=== PATIENT | male | born 1955 | race Caucasian/White ===

== ENCOUNTER 2018-04-23 09:06 | Inpatient (IN) | payer BC, OTHER ==
[2018-04-23 10:00] LABS: PLATELET COUNT 253 10^3/uL (150-400)
--- NOTE | 2018-04-23 10:01 | EDPHY ---
H & P Stated Complaint: L knee swelling Time Seen by Provider: 04/23/18 09:22 HPI/ROS: CHIEF COMPLAINT: "My left knee is draining" HISTORY OF PRESENT ILLNESS: 62 year old immunosuppressed male, history of psoriasis on immune suppressant medication, arrives via private vehicle complaining of progressive left knee pain for the past 5 denies with development of blood blisters and drainage since last evening. He contact his PCP and a prescription for ciprofloxacin was called in. He has taken 1 dose of ciprofloxacin. He saw his PCP in the office this morning and was told to go to the ER for further evaluation. The patient complains of foul-smelling wound purulent, sanguinous drainage since last evening. He is able to bear weight albeit with pain. He denies history of trauma. He recently traveled to the [facility]. No international travel. States that he is otherwise feeling well. He denies: Fever, chills, flu-like symptoms, gingival bleeding, GI bleeding, urinary discoloration/hematuria, abdominal pain, nausea, vomiting PRIMARY CARE PROVIDER:Dr. Johann Rios REVIEW OF SYSTEMS: A ten point review of systems was performed and is negative with the exception of the items mentioned in the HPI PAST MEDICAL & SURGICAL HISTORY: Psoriasis on Taltz. Tetanus up-to-date. Immune suppressed secondary to psoriasis medication. History of [place] with stents. No anticoagulant medications. No history of diabetes. No history of chronic skin infections or known history of MRSA. SOCIAL HISTORY: nonsmoker PHYSICAL EXAM (Prior to examination, patient consented to physical exam, hands were washed and my usual and customary physical exam procedures followed) 1) GENERAL: obese, alert and oriented. Appears nontoxic 2) HEAD: Normocephalic, atraumatic 3) HEENT: Pupils equal, round, reactive to light bilaterally. Sclera anicteric. 4) NECK: Full range of motion, no meningeal signs. 5) LUNGS: Clear auscultation bilaterally, no wheezes, no rhonchi, no retractions. 6) HEART: Regular rate and rhythm, no murmur, no heave, no gallop. 7) ABDOMEN: No guarding, no rebound, no focal tenderness, negative McBurney's, negative Ohara's, negative Rovsing's, negative peritoneal sign, 8) MUSCULOSKELETAL: Left lower extremity: Purulent, sanguinous drainage appreciated from the prepatellar region with associated foul smell. Erythema extending to the distal 3rd of the thigh. Clots appreciated. Limited range of motion secondary to pain. No crepitus. 9) BACK: No CVA tenderness, no midline vertebral tenderness, no fluctuance, no step-off, no obvious trauma, no visual or palpable abnormality. 10) SKIN: No rash, no petechiae. 11) Psychiatric: Patient is oriented X 3, there is no agitation. DIFFERENTIAL DIAGNOSIS: In no particular include but limited to prepatellar septic bursitis, cellulitis, necrotizing fasciitis, septic arthritis - Personal History Current Tetanus/Diphtheria Vaccine: Yes Current Tetanus Diphtheria and Acellular Pertussis (TDAP): Yes - Medical/Surgical History Hx Asthma: Yes Hx Chronic Respiratory Disease: No Hx Diabetes: No Hx Cardiac Disease: Yes Hx Renal Disease: No Hx Cirrhosis: No Hx Alcoholism: No Hx HIV/AIDS: No Hx Splenectomy or Spleen Trauma: No Other PMH: HTN, psoriasis, asthma, [place] 1998, 3 stents, - Social History Smoking Status: Former smoker Constitutional: Initial Vital Signs Temperature (C) 36.7 C 04/23/18 09:14 Heart Rate 98 04/23/18 09:14 Respiratory Rate 16 04/23/18 09:14 Blood Pressure 151/73 H 04/23/18 09:14 O2 Sat (%) 92 04/23/18 09:14 O2 Delivery Mode Room Air Allergies/Adverse Reactions: No Known Allergies Allergy (Unverified 04/23/18 09:12) Home Medications: Medication Instructions Recorded Ascorbic Acid [Vitamin C 500 mg 500 mg PO DAILY 04/23/18 (*)] Atorvastatin Calcium [Lipitor 40 80 mg PO DAILY18 04/23/18 mg (*)] Cetirizine [ZyrTEC 10 mg (*)] 10 mg PO DAILY 04/23/18 Ciprofloxacin [Cipro] 500 mg PO BID 04/23/18 Diclofenac Sodium [Voltaren-XR] 100 mg PO DAILY 04/23/18 Glucosamine/Chondroitin 1 each PO BID 04/23/18 [Glucosamine/Chondroitin (*)] Herbals/Supplements -Info Only 1 ea PO DAILY 04/23/18 Ixekizumab [Taltz Autoinjector] 80 mg SQ Q30D 04/23/18 Metoprolol Succinate Xr [Toprol Xl 50 mg PO DAILY 04/23/18 50 mg (*)] Multivitamins [Multivitamin (*)] 1 each PO DAILY 04/23/18 Medical Decision Making - Diagnostics Imaging Results: Imaging Impressions Knee X-Ray 04/23/18 09:40 Impression: 1. Soft tissue wound or infection in the subcutaneous fat anterior to the patella, patellar tendon, and proximal tibia with radiopaque debris and air. 2. Tricompartment degenerative change left knee more severe in the medial compartment. ED Course/Re-evaluation: 9:30 p.m.: Patient was also seen and examined by Dr. Wander Byrne in the ER after I evaluated patient. Patient has purulent sanguinous drainage from the prepatellar space and intra-articular extension is not ruled out. Plan will be laboratory studies, broad-spectrum antibiotics, consultation with General surgery. Necrotizing fasciitis, osteomyelitis not ruled out at this time 10:38 a.m.: Consultation with Dr. Mckeon general surgery who will consult.. 10:43 a.m.: Consultation with hospitalistLavonne, admit to Dr. Shaan Lujan - Data Points Laboratory Results: Laboratory Results 04/23/18 09:50 04/23/18 09:50 04/23/18 04/23/18 04/23/18 09:55 09:50 09:50 WBC RBC Hgb Hct MCV MCH MCHC RDW Plt Count MPV Neut % (Auto) Lymph % (Auto) [place] % (Auto) Eos % (Auto) Baso % (Auto) Nucleat RBC Rel Count Absolute Neuts (auto) Absolute Lymphs (auto) Absolute Monos (auto) Absolute Eos (auto) Absolute Basos (auto) Absolute Nucleated RBC Immature Gran % Seg Neutrophils % Band Neutrophils % Lymphocytes % Monocytes % Eosinophils % Basophils % Metamyelocytes % Myelocytes % Promyelocytes % Blast Cells % Immature Gran # Absolute Seg Neuts Absolute Band Neuts Absolute Lymphocytes Absolute Monocytes Absolute Eosinophils Absolute Basophils Absolute Metamyelocyte Absolute Myelocytes Absolute Promyelocytes Absolute Plasma Cells Absolute Blast Cells Plasma Cells % Toxic Granulation Platelet Estimate Microcytic Cells Echinocytes ESR PT INR APTT VBG Lactic Acid 3.7 mmol/L H mmol/L (0.7-2.1) Sodium 139 mEq/L mEq/L (135-145) Potassium 4.5 mEq/L mEq/L (3.3-5.0) Chloride 98 mEq/L mEq/L (97-110) Carbon Dioxide 21 mEq/l L mEq/l (22-31) Anion Gap 20 mEq/L H mEq/L (8-16) BUN 86 mg/dL H mg/dL (7-23) Creatinine 4.4 mg/dL H mg/dL (0.7-1.3) Estimated GFR 14 Glucose 119 mg/dL H mg/dL (70-100) POC Lactic Acid Krishan 3.7 mmol/L H mmol/L (0.7-2.1) Calcium 8.2 mg/dL L mg/dL (8.5-10.4) C-Reactive Protein 510.9 mg/L H mg/L (<10.0) 04/23/18 04/23/18 09:50 09:50 WBC 14.15 10^3/uL H 10^3/uL (3.80-9.50) RBC 5.17 10^6/uL 10^6/uL (4.40-6.38) Hgb 14.0 g/dL g/dL (13.7-17.5) Hct 42.9 % % (40.0-51.0) MCV 83.0 fL fL (81.5-99.8) MCH 27.1 pg L pg (27.9-34.1) MCHC 32.6 g/dL g/dL (32.4-36.7) RDW 15.9 % H % (11.5-15.2) Plt Count 253 10^3/uL 10^3/uL (150-400) MPV 11.7 fL fL (8.7-11.7) Neut % (Auto) Not Reported Lymph % (Auto) Not Reported [place] % (Auto) Not Reported Eos % (Auto) Not Reported Baso % (Auto) Not Reported Nucleat RBC Rel Count Not Reported Absolute Neuts (auto) Not Reported Absolute Lymphs (auto) Not Reported Absolute Monos (auto) Not Reported Absolute Eos (auto) Not Reported Absolute Basos (auto) Not Reported Absolute Nucleated RBC Not Reported Immature Gran % Not Reported Seg Neutrophils % 42.9 % % Band Neutrophils % 32.7 % % Lymphocytes % 12.2 % % Monocytes % 7.1 % % Eosinophils % 3.1 % % Basophils % 0 % % Metamyelocytes % 2.0 % % Myelocytes % 0 % % Promyelocytes % 0 % % Blast Cells % 0 % % Immature Gran # Not Reported Absolute Seg Neuts 6.07 10^/uL 10^/uL (1.70-6.50) Absolute Band Neuts 4.63 10^3/uL H 10^3/uL (0.00-0.70) Absolute Lymphocytes 1.73 10^3/uL 10^3/uL (1.00-3.00) Absolute Monocytes 1.00 10^3/uL H 10^3/uL (0.30-0.80) Absolute Eosinophils 0.44 10^3/uL H 10^3/uL (0.03-0.40) Absolute Basophils 0.00 10^3/uL L 10^3/uL (0.02-0.10) Absolute Metamyelocyte 0.28 10^3/mL H 10^3/mL (0.00-0.00) Absolute Myelocytes 0.00 10^3/mL 10^3/mL (0.00-0.00) Absolute Promyelocytes 0.00 10^3/uL 10^3/uL (0.00-0.00) Absolute Plasma Cells 0.00 10^3/uL 10^3/uL (0.00-0.00) Absolute Blast Cells 0.00 10^3/uL 10^3/uL (0.00-0.00) Plasma Cells % 0 % % Toxic Granulation PRESENT H Platelet Estimate ADEQUATE (ADEQ) Microcytic Cells 1+ H Echinocytes 1+ H ESR > 130 MM/HR H MM/HR (0-20) PT 16.0 SEC H SEC (12.0-15.0) INR 1.26 H (0.83-1.16) APTT 28.1 SEC SEC (23.0-38.0) VBG Lactic Acid Sodium Potassium Chloride Carbon Dioxide Anion Gap BUN Creatinine Estimated GFR Glucose POC Lactic Acid Krishan Calcium C-Reactive Protein Microbiology Results: MICROBIOLOGY 04/23/18 09:35 Knee - Swab Gram Stain - Final Medications Given: Discontinued Medications Bacitracin (Bacitracin Syringe) Confirm Administered Dose 150,000 units IRR .STK -MED ONE Stop: 04/23/18 12:18 Last Admin: 04/23/18 13:29 Dose: 150,000 units Bupivacaine HCl (Sensorcaine 0.5% Vial) Confirm Administered Dose 30 ml .ROUTE .STK-MED ONE Stop: 04/23/18 11:54 Last Admin: 04/23/18 13:29 Dose: 30 ml Cefazolin Sodium/Dextrose (Ancef 2 Gm) 100 mls @ 200 mls/hr IV EDNOW ONE PRN Reason: Protocol Stop: 04/23/18 10:37 Last Admin: 04/23/18 11:05 Dose: 100 mls Sodium Chloride (Ns) 2,000 mls @ 0 mls/hr IV ONCE ONE PRN Reason: Wide Open Stop: 04/23/18 10:10 Last Admin: 04/23/18 10:18 Dose: 2,000 mls Vancomycin HCl 2 gm/ Dextrose 500 mls @ 250 mls/hr IV ONCE ONE Stop: 04/23/18 14:29 Last Admin: 04/23/18 13:26 Dose: 500 mls Midazolam HCl (Versed) 2 mg IVP ONCALL ONE Stop: 04/23/18 12:27 Last Admin: 04/23/18 12:36 Dose: 2 mg Point of Care Test Results: Blood Gas/Lactic Acid-Venous 04/23/18 09:55 POC Lactic Acid Krishan 3.7 mmol/L H mmol/L (0.7-2.1) Departure - Departure Disposition: [facility] Inpatient Acute Clinical Impression: Left leg cellulitis Acute renal failure (ARF) Qualifiers: Acute renal failure type: unspecified Qualified Code(s): N17.9 - Acute kidney failure, unspecified Condition: Good
[2018-04-23] MEDS ORDERED: ceFAZolin 2 GM/DEXTROSE 100 ML IV ONE (10:08)
[2018-04-23 10:09] LABS: INR 1.26 (0.83-1.16)
[2018-04-23] MEDS ORDERED: NS 2,000 ML IV ONE (10:09)
--- NOTE | 2018-04-23 11:36 | PDGENHP ---
History and Physical - Chief Complaint L leg pain, drainage - History of Present Illness 62 yo morbidly obese male, has had swelling and some erythema of the left lower leg for a while, has gotten acutely worse over the past few days. Was at his PCP office [place] today, had significant drainage from the area and was directed here. Co left lower leg pain, has had chills pain is sharp, non radiating and worse with movement History Information - Allergies/Home Medication List Allergies/Adverse Reactions: No Known Allergies Allergy (Unverified 04/23/18 09:12) Home Medications: Ascorbic Acid [Vitamin C 500 mg (*)] 500 mg PO DAILY 04/23/18 [Last Taken ] Atorvastatin Calcium [Lipitor 40 mg (*)] 80 mg PO DAILY18 04/23/18 [Last Taken 04/22/18] Cetirizine [ZyrTEC 10 mg (*)] 10 mg PO DAILY 04/23/18 [Last Taken 04/23/18] Ciprofloxacin [Cipro] 500 mg PO BID 04/23/18 [Last Taken 04/23/18] Diclofenac Sodium [Voltaren-XR] 100 mg PO DAILY 04/23/18 [Last Taken 04/23/18] Glucosamine/Chondroitin [Glucosamine/Chondroitin (*)] 1 each PO BID 04/23/18 [ Last Taken 04/23/18] Herbals/Supplements -Info Only 1 ea PO DAILY 04/23/18 [Last Taken Unknown] Ixekizumab [Taltz Autoinjector] 80 mg SQ Q30D 04/23/18 [Last Taken 10 Days Ago ~ 04/13/18] Metoprolol Succinate Xr [Toprol Xl 50 mg (*)] 50 mg PO DAILY 04/23/18 [Last Taken 04/23/18] Multivitamins [Multivitamin (*)] 1 each PO DAILY 04/23/18 [Last Taken 04/23/18] I have personally reviewed and updated: medical history, social history, surgical history - Surgical History Additional surgical history: no Hx of nec fasc - Social History Smoking Status: Former smoker Review of Systems Review of Systems: ROS: 10pt was reviewed & negative except for what was stated in HPI & below Physical Exam Physical Exam: Temp Pulse Resp BP Pulse Ox 36.8 C 87 18 106/77 92 04/23/18 10:17 04/23/18 10:17 04/23/18 10:17 04/23/18 10:17 04/23/18 10:17 Constitutional: no apparent distress, appears nourished, not in pain Eyes: PERRL, anicteric sclera, EOMI Ears, Nose, Mouth, Throat: moist mucous membranes, hearing normal, ears appear normal, no oral mucosal ulcers Cardiovascular: regular rate and rhythym, no murmur, rub, or gallop, No edema Respiratory: no respiratory distress, no rales or rhonchi, clear to auscultation Gastrointestinal: normoactive bowel sounds, soft, non-tender abdomen, no palpable masses Genitourinary: no bladder fullness, no bladder tenderness Skin: warm, normal color, no rashes or abrasions, no fluctuance, no induration, No mottled Musculoskeletal: other (L lower leg cellulitis, open wound with necrotic tissue under, distal pulses intact ) Psychiatric: interacting appropriately, not anxious, not encephalopathic, thought process linear Lymph, Heme, Immunologic: no cervical LAD, no supraclavicular LAD Lab Data & Imaging Review 04/23/18 09:50 04/23/18 09:50 WBC 14.15 10^3/uL (3.80-9.50) H 04/23/18 09:50 RBC 5.17 10^6/uL (4.40-6.38) 04/23/18 09:50 Hgb 14.0 g/dL (13.7-17.5) 04/23/18 09:50 Hct 42.9 % (40.0-51.0) 04/23/18 09:50 MCV 83.0 fL (81.5-99.8) 04/23/18 09:50 MCH 27.1 pg (27.9-34.1) L 04/23/18 09:50 MCHC 32.6 g/dL (32.4-36.7) 04/23/18 09:50 RDW 15.9 % (11.5-15.2) H 04/23/18 09:50 Plt Count 253 10^3/uL (150-400) 04/23/18 09:50 MPV 11.7 fL (8.7-11.7) 04/23/18 09:50 Neut % (Auto) Not Reported 04/23/18 09:50 Lymph % (Auto) Not Reported 04/23/18 09:50 [place] % (Auto) Not Reported 04/23/18 09:50 Eos % (Auto) Not Reported 04/23/18 09:50 Baso % (Auto) Not Reported 04/23/18 09:50 Nucleat RBC Rel Count Not Reported 04/23/18 09:50 Absolute Neuts (auto) Not Reported 04/23/18 09:50 Absolute Lymphs (auto) Not Reported 04/23/18 09:50 Absolute Monos (auto) Not Reported 04/23/18 09:50 Absolute Eos (auto) Not Reported 04/23/18 09:50 Absolute Basos (auto) Not Reported 04/23/18 09:50 Absolute Nucleated RBC Not Reported 04/23/18 09:50 Immature Gran % Not Reported 04/23/18 09:50 Seg Neutrophils % 42.9 % 04/23/18 09:50 Band Neutrophils % 32.7 % 04/23/18 09:50 Lymphocytes % 12.2 % 04/23/18 09:50 Monocytes % 7.1 % 04/23/18 09:50 Eosinophils % 3.1 % 04/23/18 09:50 Basophils % 0 % 04/23/18 09:50 Metamyelocytes % 2.0 % 04/23/18 09:50 Myelocytes % 0 % 04/23/18 09:50 Promyelocytes % 0 % 04/23/18 09:50 Blast Cells % 0 % 04/23/18 09:50 Immature Gran # Not Reported 04/23/18 09:50 Absolute Seg Neuts 6.07 10^/uL (1.70-6.50) 04/23/18 09:50 Absolute Band Neuts 4.63 10^3/uL (0.00-0.70) H 04/23/18 09:50 Absolute Lymphocytes 1.73 10^3/uL (1.00-3.00) 04/23/18 09:50 Absolute Monocytes 1.00 10^3/uL (0.30-0.80) H 04/23/18 09:50 Absolute Eosinophils 0.44 10^3/uL (0.03-0.40) H 04/23/18 09:50 Absolute Basophils 0.00 10^3/uL (0.02-0.10) L 04/23/18 09:50 Absolute Metamyelocyte 0.28 10^3/mL (0.00-0.00) H 04/23/18 09:50 Absolute Myelocytes 0.00 10^3/mL (0.00-0.00) 04/23/18 09:50 Absolute Promyelocytes 0.00 10^3/uL (0.00-0.00) 04/23/18 09:50 Absolute Plasma Cells 0.00 10^3/uL (0.00-0.00) 04/23/18 09:50 Absolute Blast Cells 0.00 10^3/uL (0.00-0.00) 04/23/18 09:50 Plasma Cells % 0 % 04/23/18 09:50 Toxic Granulation PRESENT H 04/23/18 09:50 Platelet Estimate ADEQUATE (ADEQ) 04/23/18 09:50 Microcytic Cells 1+ H 04/23/18 09:50 Echinocytes 1+ H 04/23/18 09:50 ESR > 130 MM/HR (0-20) H 04/23/18 09:50 PT 16.0 SEC (12.0-15.0) H 04/23/18 09:50 INR 1.26 (0.83-1.16) H 04/23/18 09:50 APTT 28.1 SEC (23.0-38.0) 04/23/18 09:50 VBG Lactic Acid 3.7 mmol/L (0.7-2.1) H 04/23/18 09:50 Sodium 139 mEq/L (135-145) 04/23/18 09:50 Potassium 4.5 mEq/L (3.3-5.0) 04/23/18 09:50 Chloride 98 mEq/L (97-110) 04/23/18 09:50 Carbon Dioxide 21 mEq/l (22-31) L 04/23/18 09:50 Anion Gap 20 mEq/L (8-16) H 04/23/18 09:50 BUN 86 mg/dL (7-23) H 04/23/18 09:50 Creatinine 4.4 mg/dL (0.7-1.3) H 04/23/18 09:50 Estimated GFR 14 04/23/18 09:50 Glucose 119 mg/dL (70-100) H 04/23/18 09:50 POC Lactic Acid Krishan 3.7 mmol/L (0.7-2.1) H 04/23/18 09:55 Calcium 8.2 mg/dL (8.5-10.4) L 04/23/18 09:50 C-Reactive Protein 510.9 mg/L (<10.0) H 04/23/18 09:50 Assessment & Plan Assessment: Left leg cellulitis (Acute) Plan: 62yo M, LLE cellulitis, high suspiciou for NSTI - IV abx, - to OR for debridement KAYLYNN, discussed that this may be ongoing process. Discussed that he may lose leg regardless of Tx - RBA discussed
[2018-04-23] MEDS ORDERED: LR 1,000 ML IV ONE ×2 (11:46→12:09)
[2018-04-23] MEDS ORDERED: BUPIVACAINE 0.5% 30 ML SDV ONE (11:53)
[2018-04-23] MEDS ORDERED: PROPOFOL 200 MG/20 ML VIAL ONE ×2 (11:59)
[2018-04-23] MEDS ORDERED: fentaNYL 100 MCG/2 ML INJ ONE ×2 (11:59→13:00)
[2018-04-23] MEDS ORDERED: HYDROmorphONE/DILAUDID 1 MG/ML INJ IVP PRN ×2 (12:02→13:55)
[2018-04-23] MEDS ORDERED: LIDOCAINE 2% 5 ML SDV ONE (12:02)
[2018-04-23] MEDS ORDERED: ONDANSETRON 4 MG/2 ML VIAL IVP PRN ×2 (12:02→13:55)
[2018-04-23] MEDS ORDERED: ONDANSETRON DISINTEGRATING 4 MG TAB PO PRN (12:02)
[2018-04-23] MEDS ORDERED: ACETAMINOPHEN 325 MG TAB PO PRN (12:02)
[2018-04-23] MEDS ORDERED: HYDROmorphONE/DILAUDID 2 MG TAB PO PRN (12:02)
[2018-04-23] MEDS ORDERED: BACITRACIN 50,000 UNITS/10 ML SYR IRR ONE (12:17)
[2018-04-23] MEDS ORDERED: MIDAZOLAM 2 MG/2 ML VIAL IVP ONE (12:26)
[2018-04-23] MEDS ORDERED: MIDAZOLAM 2 MG/2 ML VIAL ONE (12:26)
[2018-04-23] MEDS ORDERED: VANCOMYCIN 2 GM in D5W 500 ML IV ONE (12:30)
[2018-04-23] MEDS ORDERED: DEXAMETHASONE 4 MG/ML VIAL ONE (12:51)
--- NOTE | 2018-04-23 13:17 | PDANEPAE ---
ANE History of Present Illness morbidly obese with LLE cellulitis ANE Past Medical History - Cardiovascular History Hx Hypertension: Yes Hx Arrhythmias: No Hx Chest Pain: No Hx Coronary Artery / Peripheral Vascular Disease: Yes Hx CHF / Valvular Disease: No Hx Palpitations: No - Pulmonary History Hx COPD: No Hx Asthma/Reactive Airway Disease: No Hx Recent Upper Respiratory Infection: No Hx Oxygen in Use at Home: No Hx Sleep Apnea: No - Endocrine History Hx Diabetes: No Hypothyroid: No Hyperthyroid: No Obesity: yes, severe ANE Review of Systems Review of systems is: negative Review of Systems: - Exercise capacity Exercise capacity: <4 METS ANE Patient History - Allergies Allergies/Adverse Reactions: No Known Allergies Allergy (Unverified 04/23/18 09:12) - Home Medications Home medications: home medication list seen and reviewed Home Medications: Ascorbic Acid [Vitamin C 500 mg (*)] 500 mg PO DAILY 04/23/18 [Last Taken ] Atorvastatin Calcium [Lipitor 40 mg (*)] 80 mg PO DAILY18 04/23/18 [Last Taken 04/22/18] Cetirizine [ZyrTEC 10 mg (*)] 10 mg PO DAILY 04/23/18 [Last Taken 04/23/18] Ciprofloxacin [Cipro] 500 mg PO BID 04/23/18 [Last Taken 04/23/18] Diclofenac Sodium [Voltaren-XR] 100 mg PO DAILY 04/23/18 [Last Taken 04/23/18] Glucosamine/Chondroitin [Glucosamine/Chondroitin (*)] 1 each PO BID 04/23/18 [ Last Taken 04/23/18] Herbals/Supplements -Info Only 1 ea PO DAILY 04/23/18 [Last Taken Unknown] Ixekizumab [Taltz Autoinjector] 80 mg SQ Q30D 04/23/18 [Last Taken 10 Days Ago ~ 04/13/18] Metoprolol Succinate Xr [Toprol Xl 50 mg (*)] 50 mg PO DAILY 04/23/18 [Last Taken 04/23/18] Multivitamins [Multivitamin (*)] 1 each PO DAILY 04/23/18 [Last Taken 04/23/18] - NPO status NPO Since - Liquids (Date): 04/23/18 NPO Since - Liquids (Time): 07:30 NPO Since - Solids (Date): 04/22/18 NPO Since - Solids (Time): 18:30 - Smoking Hx Smoking Status: Former smoker ANE Labs/Vital Signs - Labs Result Diagrams: 04/23/18 09:50 04/23/18 09:50 - Vital Signs Blood Pressure: 115/78 Heart Rate: 73 Respiratory Rate: 18 O2 Sat (%): 91 Height: 177.8 cm Weight: 173.272 kg ANE Physical Exam - Airway Neck exam: FROM, increased neck circumference Mallampati Score: Class 2 Mouth exam: normal dental/mouth exam - Pulmonary Pulmonary: no respiratory distress - Cardiovascular Cardiovascular: regular rate and rhythym - ASA Status ASA Status: IV ANE Anesthesia Plan Anesthesia Plan: GA w LMA Urgent/Emergent Case: Gina langford completed preop but documented later for safe timely pt care
--- NOTE | 2018-04-23 13:28 | POSTANESTH ---
Post Anesthetic Evaluation Cardiovascular Status: Normal, Stable Respiratory Status: Normal, Stable Level of Consciousness/Mental Status: Can Participate in Eval, Alert and Oriented Pain Control: Adequate, Prn Tx Ordered Nausea/Vomiting Control: Adequate, Prn Tx Ordered Complications Possibly Related to Anesthesia: None Noted
[2018-04-23] MEDS ORDERED: fentaNYL 100 MCG/2 ML INJ IVP PRN (13:55)
[2018-04-23] MEDS ORDERED: oxyCODONE IR 5 MG TAB PO PRN (13:55)
[2018-04-23] MEDS ORDERED: PROMETHAZINE HCL 25 MG/ML INJ IVP PRN (13:55)
[2018-04-23] MEDS ORDERED: LABETALOL HCL 5 MG/ML 20 ML MDV IVP PRN (13:55)
[2018-04-23] MEDS ORDERED: ALBUTEROL 3 ML DEYVIAL IH PRN (13:55)
[2018-04-23] MEDS ORDERED: NALOXONE HCL 0.4 MG/ML INJ IVP PRN (13:55)
[2018-04-23] MEDS ORDERED: HYDROCODONE/APAP 5/325 TAB PO PRN (13:55)
[2018-04-23] MEDS ORDERED: ACETAMINOPHEN 500 MG TAB PO PRN (13:55)
--- NOTE | 2018-04-23 13:57 | POSTOPPROG ---
Post Op Note Date of Operation: 04/23/18 Surgeon: Nithin Mckeon Anesthesiologist: Angelito Anesthesia: LMA Pre-op Diagnosis: LLE abscess, poss NSTI Post-op Diagnosis: LLE abscess Procedure: Incision and drainage of LLE abscess 13x9cm down to bone Findings: large abscess, tracked addl 6cm superiorly Inf/Abcess present in the surg proc area at time of surgery?: Yes Depth: Deep Incisional (Fascial) EBL: 50-100 Total fluids administered: 3000cc NS washout Specimen(s): swab for cx tissue culture of wound fat
--- NOTE | 2018-04-23 14:59 | PDMN ---
Medical Necessity Medical necessity: MCG M70 cellulitis: LLE cellulitis/ high suspicion for NSTI, urgent I/D of LLE abscess down to the bone further monitoring and tx needed anticipate > 2 midnights
[2018-04-23] MEDS: CLINDAMYCIN 900 MG/DEXTROSE 50 ML IV SCH ×2 (16:00→22:42)
--- NOTE | 2018-04-23 16:48 | GOP ---
[f rep st] OPERATIVE REPORT DATE OF OPERATION: 04/23/2018 SURGEON: Nithin Mckeon MD OUT [employer]OL HOURS CARE WORKER: None. ANESTHESIA: General endotracheal, ANESTHESIOLOGIST: Jose De Jesus Eaton MD PREOPERATIVE DIAGNOSIS: Left lower extremity abscess, concern for necrotizing soft tissue infection. POSTOPERATIVE DIAGNOSIS: Left lower extremity abscess. PROCEDURE PERFORMED: Incision and drainage of left lower extremity abscess down to bone, measuring 9 x 13 cm. FINDINGS: Large area of necrotic tissue completely debrided. Area did track somewhat superiorly an additional 5-6 cm. The wound was packed with Betadine- soaked Kerlix. SPECIMENS: Swab and tissue cultures both taken. ESTIMATED BLOOD LOSS: 100 cc. DESCRIPTION OF PROCEDURE: The patient was greeted in the preoperative suite. Once again, risks, benefits, and alternatives were discussed. Consent was signed. He was then brought back to the operative suite, placed on the OR table in supine position. After all anesthesia machines, including SCDs, were on and functioning, a [employer] time-out was performed. After successful induction of anesthesia, the patient's left lower leg was prepped and draped in the typical sterile fashion. I commenced the procedure by unroofing the area, which was clearly necrotic. Once down to the wound cavity, there was a fair amount of necrotic fat and old blood. This was successfully evacuated. The wound was then probed. It tracked superiorly and I took an additional area of skin, making the wound a total 9 x 13 cm in whole. Even with the area that I did debride, there was still an area that tracked with overlying good healthy skin. Underneath it there was purulent material. After hemostasis was achieved, multiple cutaneous veins required suture ligation, which was done with 3-0 Vicryl stitches. I irrigated the wound cavity with 3 L sterile saline with bacitracin. After irrigation, I packed the wound again. Hemostasis was noted to be good. I then packed the wound definitively with Betadine-soaked Kerlix. A sterile dressing was then placed. The patient was then extubated in the operative suite and taken to the PACU in satisfactory condition. DRAINS: None. COUNTS: All counts were reported as correct x2. /[id number]/MODL MTDD
[2018-04-23] MEDS: PENICILLIN G POTASSIUM 4,000,000 UNIT in D5W 100 ML IV SCH ×4 (16:55→20:46)
--- NOTE | 2018-04-23 17:53 | PDGENHP ---
History and Physical - Chief Complaint Acute leg pain - History of Present Illness Primary care provider: Dr. Johann Rios Primary fig bar machine operator: Dr. Paul Dorantes HPI: 62-year-old male presenting with acute pain in his left lower extremity around the lateral mid to upper calf with associated purulent, foul-smelling drainage and visible skin blistering. The onset of the symptoms were approximately 5 days ago with some skin changes, subjective fevers, significant fatigue. Approximately 3 days ago, the area became particularly edematous, purulent drainage began, and the patient began communicating with his primary care provider. The patient noted that the pain in the leg was particularly exacerbated with weight-bearing activity. All the symptoms began after the patient returned from a road trip on the [place] from [place] to [place], flying home from [facility] on the day prior to onset of symptoms. On the day of presentation, the patient saw his primary care provider , received 1 dose of oral ciprofloxacin, and was immediately triaged to the emergency department. In the emergency department, the area was noted to have visible soft tissue communication, x-ray demonstrating underlying air and debris , and there was concern for necrotizing fasciitis. He was taken immediately to the operating room by Dr. Nithin Mckeon. Of note, the patient also reports initial a polyuria and increased thirst during his evolution of symptoms. He then noted subsequent oliguria despite increasing his oral intake of liquids. History Information - Allergies/Home Medication List Allergies/Adverse Reactions: No Known Allergies Allergy (Unverified 04/23/18 09:12) Home Medications: Ascorbic Acid [Vitamin C 500 mg (*)] 500 mg PO DAILY 04/23/18 [Last Taken ] Atorvastatin Calcium [Lipitor 40 mg (*)] 80 mg PO DAILY18 04/23/18 [Last Taken 04/22/18] Cetirizine [ZyrTEC 10 mg (*)] 10 mg PO DAILY 04/23/18 [Last Taken 04/23/18] Ciprofloxacin [Cipro] 500 mg PO BID 04/23/18 [Last Taken 04/23/18] Diclofenac Sodium [Voltaren-XR] 100 mg PO DAILY 04/23/18 [Last Taken 04/23/18] Glucosamine/Chondroitin [Glucosamine/Chondroitin (*)] 1 each PO BID 04/23/18 [ Last Taken 04/23/18] Herbals/Supplements -Info Only 1 ea PO DAILY 04/23/18 [Last Taken Unknown] Ixekizumab [Taltz Autoinjector] 80 mg SQ Q30D 04/23/18 [Last Taken 10 Days Ago ~ 04/13/18] Metoprolol Succinate Xr [Toprol Xl 50 mg (*)] 50 mg PO DAILY 04/23/18 [Last Taken 04/23/18] Multivitamins [Multivitamin (*)] 1 each PO DAILY 04/23/18 [Last Taken 04/23/18] I have personally reviewed and updated: family history, medical history, social history, surgical history - Past Medical History coronary artery disease (With cardiac stents in 1998, 3 placed, has had very rare angina over the past 20 years only taking sublingual nitroglycerin approximately 3 times) Additional medical history: Morbid obesity. Osteoarthritis. Suspected underlying obstructive sleep apnea. Psoriasis and psoriatic arthritis for 30 years on chronic immunosuppressant - Surgical History Additional surgical history: no Hx of nec fasc or lower extremity surgeries - Family History Additional family history: No family history of venous thromboembolism or rheumatologic disorders - Social History Smoking Status: Former smoker Alcohol Use: Occasionally Drug Use: None Additional social history: Recently returned from a road trip on the [facility] Review of Systems Review of Systems: ROS: 10pt was reviewed & negative except for what was stated in HPI & below Constitutional: Reports: fever, malaise, weakness Genitourinary: Reports: other (Oliguria) Skin: Reports: change in color, other (Purulence, blistering, edema, pain left lower extremity) Physical Exam Physical Exam: Temp Pulse Resp BP Pulse Ox 36.4 C 72 15 120/65 94 04/23/18 16:00 04/23/18 17:00 04/23/18 17:00 04/23/18 17:00 04/23/18 17:00 O2 (L/minute) 2 Constitutional: no apparent distress, not in pain, obese, uncomfortable Eyes: PERRL, anicteric sclera, EOMI Ears, Nose, Mouth, Throat: moist mucous membranes, hearing normal, ears appear normal, no oral mucosal ulcers Cardiovascular: edema (2+ bilateral lower extremities), No systolic murmur, No irregularly irregular, No tachycardia Respiratory: no respiratory distress, no rales or rhonchi, clear to auscultation Gastrointestinal: normoactive bowel sounds, soft, non-tender abdomen, no palpable masses, No distension Genitourinary: no bladder fullness Skin: other (Open and burrowing wounds on his left lower extremity with surrounding erythema, purulent drainage, foul-smelling, tenderness) Musculoskeletal: other (Impaired flexion in his left knee secondary to pain in his left anterior calf, full range of motion of his left ankle) Neurologic: AAOx3, sensation intact bilaterally Psychiatric: interacting appropriately, not anxious, not encephalopathic, thought process linear Lab Data & Imaging Review 04/23/18 09:50 04/23/18 09:50 WBC 14.15 10^3/uL (3.80-9.50) H 04/23/18 09:50 RBC 5.17 10^6/uL (4.40-6.38) 04/23/18 09:50 Hgb 14.0 g/dL (13.7-17.5) 04/23/18 09:50 Hct 42.9 % (40.0-51.0) 04/23/18 09:50 MCV 83.0 fL (81.5-99.8) 04/23/18 09:50 MCH 27.1 pg (27.9-34.1) L 04/23/18 09:50 MCHC 32.6 g/dL (32.4-36.7) 04/23/18 09:50 RDW 15.9 % (11.5-15.2) H 04/23/18 09:50 Plt Count 253 10^3/uL (150-400) 04/23/18 09:50 MPV 11.7 fL (8.7-11.7) 04/23/18 09:50 Neut % (Auto) Not Reported 04/23/18 09:50 Lymph % (Auto) Not Reported 04/23/18 09:50 [place] % (Auto) Not Reported 04/23/18 09:50 Eos % (Auto) Not Reported 04/23/18 09:50 Baso % (Auto) Not Reported 04/23/18 09:50 Nucleat RBC Rel Count Not Reported 04/23/18 09:50 Absolute Neuts (auto) Not Reported 04/23/18 09:50 Absolute Lymphs (auto) Not Reported 04/23/18 09:50 Absolute Monos (auto) Not Reported 04/23/18 09:50 Absolute Eos (auto) Not Reported 04/23/18 09:50 Absolute Basos (auto) Not Reported 04/23/18 09:50 Absolute Nucleated RBC Not Reported 04/23/18 09:50 Immature Gran % Not Reported 04/23/18 09:50 Seg Neutrophils % 42.9 % 04/23/18 09:50 Band Neutrophils % 32.7 % 04/23/18 09:50 Lymphocytes % 12.2 % 04/23/18 09:50 Monocytes % 7.1 % 04/23/18 09:50 Eosinophils % 3.1 % 04/23/18 09:50 Basophils % 0 % 04/23/18 09:50 Metamyelocytes % 2.0 % 04/23/18 09:50 Myelocytes % 0 % 04/23/18 09:50 Promyelocytes % 0 % 04/23/18 09:50 Blast Cells % 0 % 04/23/18 09:50 Immature Gran # Not Reported 04/23/18 09:50 Absolute Seg Neuts 6.07 10^/uL (1.70-6.50) 04/23/18 09:50 Absolute Band Neuts 4.63 10^3/uL (0.00-0.70) H 04/23/18 09:50 Absolute Lymphocytes 1.73 10^3/uL (1.00-3.00) 04/23/18 09:50 Absolute Monocytes 1.00 10^3/uL (0.30-0.80) H 04/23/18 09:50 Absolute Eosinophils 0.44 10^3/uL (0.03-0.40) H 04/23/18 09:50 Absolute Basophils 0.00 10^3/uL (0.02-0.10) L 04/23/18 09:50 Absolute Metamyelocyte 0.28 10^3/mL (0.00-0.00) H 04/23/18 09:50 Absolute Myelocytes 0.00 10^3/mL (0.00-0.00) 04/23/18 09:50 Absolute Promyelocytes 0.00 10^3/uL (0.00-0.00) 04/23/18 09:50 Absolute Plasma Cells 0.00 10^3/uL (0.00-0.00) 04/23/18 09:50 Absolute Blast Cells 0.00 10^3/uL (0.00-0.00) 04/23/18 09:50 Plasma Cells % 0 % 04/23/18 09:50 Toxic Granulation PRESENT H 04/23/18 09:50 Platelet Estimate ADEQUATE (ADEQ) 04/23/18 09:50 Microcytic Cells 1+ H 04/23/18 09:50 Echinocytes 1+ H 04/23/18 09:50 ESR > 130 MM/HR (0-20) H 04/23/18 09:50 PT 16.0 SEC (12.0-15.0) H 04/23/18 09:50 INR 1.26 (0.83-1.16) H 04/23/18 09:50 APTT 28.1 SEC (23.0-38.0) 04/23/18 09:50 VBG Lactic Acid 1.5 mmol/L (0.7-2.1) 04/23/18 11:45 Sodium 139 mEq/L (135-145) 04/23/18 09:50 Potassium 4.5 mEq/L (3.3-5.0) 04/23/18 09:50 Chloride 98 mEq/L (97-110) 04/23/18 09:50 Carbon Dioxide 21 mEq/l (22-31) L 04/23/18 09:50 Anion Gap 20 mEq/L (8-16) H 04/23/18 09:50 BUN 86 mg/dL (7-23) H 04/23/18 09:50 Creatinine 4.4 mg/dL (0.7-1.3) H 04/23/18 09:50 Estimated GFR 14 04/23/18 09:50 Glucose 119 mg/dL (70-100) H 04/23/18 09:50 POC Lactic Acid Krishan 3.7 mmol/L (0.7-2.1) H 04/23/18 09:55 Calcium 8.2 mg/dL (8.5-10.4) L 04/23/18 09:50 C-Reactive Protein 510.9 mg/L (<10.0) H 04/23/18 09:50 Visualized and Interpreted imaging results: Yes Interpretation: Knee x-ray demonstrating soft tissue swelling in the anterior patellar area with air and debris Assessment & Plan Assessment: 62-year-old male presenting with left lower extremity abscess and cellulitis complicated by acute renal failure, acute lactic acidosis Plan: 1. Abscess and cellulitis. Present on admission. Left lower extremity, anterior aspect, concern for necrotizing fasciitis on initial presentation and patient emergently went to the operating room with Dr. Nithin Mckeon -culture sent, monitor blood cultures -per Dr. Mckeon, the area appears to be more consistent with abscess and will most likely require large skin flap for healing -discussed with Dr. Paul Storey, infectious Disease consultation appreciated, he recommended a combination of vancomycin, clindamycin, penicillin when the initial impression was possible necrotizing fasciitis -I discussed with the pharmacist weight based and renally dosed dosing, discussed with the operating room nurse administration of these antibiotics immediately following wound culture -anticipate protracted wound recovery -given his recent sedentary road trip, will ultrasound his bilateral lower extremities to ensure no deep venous thrombosis, particularly in left lower extremity which may have precipitated some increasing swelling and then subsequent infection 2. Acute renal failure. Oliguric, reviewed outside records including 01/30/2015 baseline serum creatinine level 0.9, currently 4.4 with BUN of 86, most likely secondary to renal hypoperfusion in the setting of infection -status post 2 L normal saline in the emergency department, continue normal saline at 150 cc an hour -monitor strict I&Os, monitor daily creatinine level, monitor potassium level, monitor on telemetry -discussed with Dr. Wilbert Gan, he advises formal renal consultation if patient's serum creatinine level does not normalize with normal saline infusion 3. Acute metabolic acidosis. Secondary to lactic acid, 3.7 on presentation, patient did not overtly meet sepsis criteria with no hypotension or altered mental status, but if the patient does clinically decline, my impression would be that the sepsis was evolving from admission -repeat serum lactic acid level normalizing 4. Morbid obesity. Increases patient's risk of worsening morbidity and/or mortality, suspect patient has underlying RICKY and may have prolonged weaning from supplemental oxygen -patient reports that he will not be adherent to CPAP so continue supplemental oxygen via nasal cannula if needed -get incentive spirometer to mitigate atelectasis 5. Coronary artery disease. Chronic, patient denies any recent angina with activity, although the patient freely admits that he is not particularly physically active -RCRI score of 1, conferring 1.5% perioperative risk of morbidity and/or mortality from cardiovascular events, rendering patient intermediate cardiac risk for an intermediate surgery, recommend proceeding to the OR given the emergency of his issue and if the patient experiences any subsequent chest pain or arrhythmias on telemetry, check troponin and EKG -continue his home medications once reconciled 6. Hyperglycemia. Check hemoglobin A1c to give other he has diabetes 7. Psoriasis and psoriatic arthritis with chronic immunosuppression. Patient is chronically on talz, received 10 days ago, potentially predisposed him to severity of infection with chronic immunosuppression Diet. Renal Prophylaxis. High risk patient heparin subcu if not bleeding from surgical site tomorrow Code. Full, Peg is MD POAnibal Disposition. Anticipated discharge uncertain this time, anticipated length stay is greater than 48 hr for reasonable medical necessity including acute abscess and cellulitis concerning for possible necrotizing fasciitis. 45 min of critical care time spent with this patient, specifically addressing his potential necrotizing fasciitis, coordinating care with the above-mentioned providers, coordinating antibiotic administration in the operating room, patient remains critically ill with high risk of worsening morbidity and/or mortality secondary to the issues outlined above.
[2018-04-23] MEDS ORDERED: POLYETHYLENE GLYCOL 3350 17 GM PKT PO PRN (18:07)
[2018-04-23] MEDS ORDERED: BISACODYL 10 MG SUPP PR PRN (18:07)
[2018-04-23] MEDS ORDERED: LACTULOSE 20 GM/30 ML UDCUP PO PRN (18:07)
[2018-04-23] MEDS: GLUCOSAMINE/CHONDROITIN CAP PO SCH (20:46)
[2018-04-23] MEDS: SENNOSIDES/DOCUSATE SODIUM TAB PO SCH (20:46)
[2018-04-23] MEDS: ATORVASTATIN CALCIUM 40 MG TAB PO SCH (20:53)
[2018-04-23] MEDS: HYDROCODONE/APAP 5/325 TAB PO PRN (22:42)
--- NOTE | 2018-04-23 23:13 | GCON ---
[f rep st] CONSULTATION INPATIENT INFECTIOUS DISEASE CONSULTATION REFERRING PHYSICIAN: Shaan Lujan MD REASON FOR REFERRAL: Necrotizing soft tissue infection of the right lower extremity. HISTORY OF PRESENT ILLNESS: The patient is a 62-year-old male who presented to [facility] Emergency Room this morning complaining of drainage out of his knee. He has a history of psorias is and psoriatic arthritis who is on the medication Taltz. He states that he has had asymmetric swel ling of the right knee for the past 7 days. In the previous 2 days he had the development of blister s and drainage. The patient did take a dose of oral ciprofloxacin prior to coming in. He saw his [facility] care physician this morning and was directed expeditiously to the emergency room. The patient denies any trauma to the extremity. No other immunosuppressive history. PAST MEDICAL HISTORY: 1. Psoriasis and psoriatic arthritis. 2. History of a myocardial infarction in his 40s. Status post stenting. 3. History of mild asthma. 4. Obesity. PAST SURGICAL HISTORY: None noted. ANTIBIOTICS: 1. Clindamycin. 2. Penicillin G. 3. Vancomycin x1. ALLERGIES: No known drug allergies. SOCIAL HISTORY: The patient denies any significant tobacco, alcohol, or drug use. Some travel domes tically, but nothing international. FAMILY HISTORY: Reviewed, but not contributory. REVIEW OF SYSTEMS: Apart from that detailed above in the history of present illness, a comprehensive 10-system review is negative. PHYSICAL EXAMINATION: VITAL SIGNS: Temperature maximum is 36.8, temperature current is 36.4, heart rate is 72, respiratory rate is 15, blood pressure is 120/65. GENERAL: The patient is a well-formed , obese, older male in no acute distress. He is not toxic in appearance. He is alert and oriented x 3. He has a pleasant demeanor. HEENT: Normocephalic for age. Atraumatic. No scleral icterus. No oral lesion. No drainage from the nares. EYES: Lids and conjunctivae are within normal limits. P upils are equal and round bilaterally. NECK: Supple. No meningismus. LUNGS: Clear to auscultatio n with good effort. HEART: Regular rate and rhythm. No murmur, rub, or gallop noted. No significa nt peripheral edema. SKIN: Warm and dry to the touch. No rash noted. The patient is postoperative of his right knee. MUSCULOSKELETAL: No muscle belly tenderness is noted. The patient's left knee is postoperative. No other arthritis or joint effusion noted. NEURO: Cranial nerves 2 through 12 s eem to be intact. Peripheral sensation seems intact in extremities. LABORATORY DATA: The patient has a CBC dated 04/23/2018 shows a white blood cell count of 14.2, hemo globin of 14.0, hematocrit 42.9, and a platelet count of 253. Differential is left-shifted with 43% segmented neutrophils and 33% band forms. Erythrocyte sedimentation rate is greater than 130. Serum chemistries on 04/23/2018 show sodium 139, potassium of 4.5, chloride of 98, bicarb of 21, BUN of 86 , and creatinine of 4.4. C-reactive protein is elevated at 510. MICROBIOLOGIC DATA: Patient has blood cultures dated 04/23/2018, which are pending. Leg tissue date d 04/23/2018 shows gram-positive cocci in clusters. Gram stain cultures are pending. ASSESSMENT: Left lower extremity soft tissue abscess which on operative debridement went down to bon e. This is likely staphylococcal given the morphology of the organisms found in the Gram stain. The re was no clear evidence of necrotizing fasciitis. However, there was a fair amount of old hematoma and necrotic fat in the area. Currently, we gave him a single dose of vancomycin. We will check his vancomycin level tomorrow morning, but I doubt we will need to give him more considering his creatin ine was 4.4 on admission. If the levels fall below 15, we will give him another dose of 1 g. The pe nicillin G can continue for now and we can wait for the cultures to mature a little bit prior to disc ontinuing. We will continue the clindamycin as an adjunct for streptococcal coverage and also a pote ntial staph coverage. PLAN: 1. Continue both penicillin and clindamycin at present doses. 2. Check vancomycin levels in the morning. 3. Re-dose vancomycin if below 15. 4. Follow culture results and laboratory values. /[id number]/MODL
[2018-04-24] MEDS: PENICILLIN G POTASSIUM 4,000,000 UNIT in D5W 100 ML IV SCH ×3 (02:01→08:21)
[2018-04-24] MEDS: CLINDAMYCIN 900 MG/DEXTROSE 50 ML IV SCH (06:04)
[2018-04-24 06:26] LABS: PLATELET COUNT 265 10^3/uL (150-400)
[2018-04-24] MEDS ORDERED: Herbals/Supplements -Info Only PO SCH (09:00)
[2018-04-24] MEDS: ASCORBIC ACID 500 MG TAB PO SCH (09:03)
[2018-04-24] MEDS: CETIRIZINE 10 MG TAB PO SCH (09:03)
[2018-04-24] MEDS: SENNOSIDES/DOCUSATE SODIUM TAB PO SCH ×2 (09:03→20:57)
[2018-04-24] MEDS: GLUCOSAMINE/CHONDROITIN CAP PO SCH ×2 (09:03→20:57)
[2018-04-24] MEDS: MULTIVITAMINS 1 EACH TAB PO SCH (09:03)
[2018-04-24] MEDS: METOPROLOL SUCCINATE XR 50 MG TAB PO SCH ×2 (09:08→12:56)
--- NOTE | 2018-04-24 11:02 | PCMIDPN ---
Assessment/Plan: Assessment: Left knee abscess secondary to Staphylococcus aureus. Patient had a moderate septic response to this infection probably from a late presentation. He has suffered acute renal failure secondary to this response. He received a single dose of vancomycin to g yesterday upon presentation. Also has been receiving clindamycin and penicillin G. will discontinue penicillin G given isolation of Staphylococcus aureus. The growth on grow moderate plate indicates this is MSSA. We will not dose any further vancomycin and instead start cefazolin 1 g IV q.8 hours. Once kidney function recovers will increase this to 2 g IV q.8 hours. Will decreased clindamycin to 300 mg IV q.8 hours. Plan: 1. Discontinue penicillin G. 2. Start cefazolin 1 g IV q.8 hours ( renal dose) 3. decreased clindamycin to 300 mg IV q.8 hours. 4. follow out culture results until final sensitivity from [place] returns. 04/24/18 13:31 Subjective: Patient is sitting up in his chair. He feels overall tired with little appetite but generally feels okay. No fevers or chills. Objective: Penicillin G # 1 clindamycin # 1 Vancomycin x1 dose Vital Signs Temp Pulse Resp BP Pulse Ox 36.4 C 73 20 106/60 95 04/24/18 07:30 04/24/18 09:37 04/24/18 07:30 04/24/18 09:37 04/24/18 07:30 Microbiology 04/23/18 13:00 Gram Stain - Final Leg - Tissue 04/23/18 13:00 Gram Stain - Final Leg - Eswab Laboratory Results 04/24/18 06:00 04/24/18 06:00 04/23/18 04/24/18 04/25/18 05:59 05:59 05:59 Intake Total 5036 Output Total 250 Balance 4786 ESR > 130 MM/HR (0-20) H 04/23/18 09:50 C-Reactive Protein 510.9 mg/L (<10.0) H 04/23/18 09:50 - Physical Exam General Appearance: WD/WN, alert, no apparent distress, obese, non-toxic Respiratory: lungs clear, normal breath sounds, No respiratory distress Cardiac/Chest: regular rate, rhythm, No tachycardia Extremities: swelling ( left lower extremity), erythema ( left lower extremity) , No non-tender, No normal inspection Skin: normal color, warm/dry, No rash Neuro/Psych: alert, normal mood/affect, oriented x 3 ICD10 Worksheet Patient Problems: Problems Problem Status Onset Acute renal failure (ARF) Acute Left leg cellulitis Acute
--- NOTE | 2018-04-24 11:04 | HOSPPROG ---
Hospitalist Progress Note Assessment/Plan: DIAGNOSES: # deep abscess of leg status post excision and debridement * Anatomically complex infection, Staph growing in cultures with sensitivities pending * May will need skin grafting at some point # renal failure, suspect this is all acute but last available renal function test was in the [facility] when it was normal; is possible that he has developed more chronic disease in the intervening time * Making urine and no current indication for dialysis * Concerning that he had no improvement overnight # acute metabolic acidosis with elevated lactate * Uncertain if this is due to renal issues or may have been an early sign of sepsis which he does not have other signs for a present # elevated alkaline phosphatase greater than 300 * Will review with Dr. Mckeon; I reviewed x-ray images which did not show evidence of osteomyelitis, but I do not at the moment have another reason for this lab to be so abnormal * Very mild elevation of AST, could potentially be a hepatic abnormality # hyperglycemia, suspect pre diabetes or her early type 2 diabetes * No treatment necessary now but will monitor here and this should be followed carefully as an outpatient # severe stasis disease of both legs with venous insufficiency, concern for right-sided congestive heart failure as well * Very high risk for recurrent episodes of leg ulcers and skin infections # high suspicion for pulmonary hypertension related to his obesity * Obesity hypoventilation syndrome and sleep apnea are both likely, other possibilities exist as well * May well have some degree of right-sided heart failure now at this point # CAD with stents; stable at this time without symptoms and no evidence of left side heart failure Seen by me on hospitalist rounds as well as multidisciplinary rounds and icu I reviewed in detail with doctors to him Jose E and Paul Storey PLANS: * Continue current antibiotics and wait for antibiotic sensitivities; vancomycin dosing based on levels with his ongoing renal failure * Renal ultrasound and will check urine protein and for cells; do need to follow potassium closely as is rising at the high end of normal * Nephrology consult * Change diet to renal diet * Wound care * Recheck liver enzymes and if they are not quickly resolving may need to investigate this further with imaging studies of leg and/or liver * I have spoken with his primary care doctor this morning Dr. Johann Rios who will trying get me copies of his most recent echocardiogram, but will want to know if he does or does not have pulmonary hypertension, may need to repeat echocardiogram here * I have spoken with the patient and in detail today about the possibility of right-sided heart failure being present or developing, and the complications that that could bring him in terms of his ability to have an active life or limitations in his life span, also issues related to his stasis disease in legs in the need to protect his skin meticulously and to inspect the skin for any wounds on a daily basis and treat any wounds aggressively with appropriate time we medical consultation when needed * Follow closely for any signs of developing left heart issues * Follow sugars here and they should be followed in the outpatient setting as well, but no treatment for sugars needed at present * Recheck metabolic acidosis to be sure it is resolving SUBJECTIVE: Feels notably better today Still some pain but less than yesterday No new symptoms OBJECTIVE Vitals reviewed: Stable blood pressures with mean in the 70s, otherwise normal vitals without fever Tax Clerk, my review: Sinus Exam: alert oriented Markedly obese skin warm dry color ok resps not labored lungs clear BSs heart regular abd soft nondistended nontender, bowel sounds present limbs severe diffuse stasis changes including inflammation pigmentation in both legs, dressing on his left leg is intact with no evidence of bleeding or drainage of significance; I did not open the dressing at this time (I did see surgical photos from last night which showed deep debridement with a clean bed no signs of necrosis) iv site ok Laboratory data: Creatinine remains elevated at 4.4 unchanged from yesterday; still acidotic with anion gap at 20, potassium slightly higher at 5.0 will need to be watched very closely Alk-phos is elevated at greater than 300 with an AST of 69 normal ALT and bilirubin Calcium low and phosphorus high indicating possibility of secondary hyperparathyroidism from renal disease White blood cell count elevated at 19, hemoglobin is now low at 11 I reviewed his knee x-rays done in the ER yesterday and I do not see any evidence of osteomyelitis or any bone lucencies; there is significant arthritis with loss of medial cartilage Objective: Vital Signs Temp Pulse Resp BP Pulse Ox 36.4 C 73 20 106/60 95 04/24/18 07:30 04/24/18 09:37 04/24/18 07:30 04/24/18 09:37 04/24/18 07:30 Microbiology 04/23/18 13:00 Gram Stain - Final Leg - Tissue 04/23/18 13:00 Gram Stain - Final Leg - Eswab Laboratory Results 04/24/18 06:00 04/24/18 06:00 04/23/18 04/24/18 04/25/18 06:59 06:59 06:59 Intake Total 5036 Output Total 250 Balance 4786 PT 16.0 SEC (12.0-15.0) H 04/23/18 09:50 INR 1.26 (0.83-1.16) H 04/23/18 09:50 - Time Spent With Patient Time Spent with Patient: greater than 35 minutes Time Spent with Patient: Greater than 35 minutes spent on this patients care, greater than 50% of time spent counseling, educating, and coordinating care regarding the above mentioned plan. ICD10 Worksheet Patient Problems: Problems Problem Status Onset Acute renal failure (ARF) Acute Left leg cellulitis Acute
[2018-04-24] MEDS: HYDROCODONE/APAP 5/325 TAB PO PRN ×2 (12:19→20:58)
[2018-04-24] MEDS: NS 1,000 ML IV SCH ×2 (12:21→20:59)
--- NOTE | 2018-04-24 12:29 | ASMTCMCOM ---
CM Note CM Note Notes: 04/24/2018 Case Management Note Reviewed chart. Pt was admitted for left lower extremity cellulitis. Pt underwent surgical debridement and has been started on multiple antibiotics. Pt is and employed. Pt was living independently prior to admission. Case Management d/c poc: to be determined. Case Management to follow. Date Signed: 04/24/2018 12:28 PM Electronically Signed By:Maggie Watts RN
[2018-04-24] MEDS ORDERED: HEPARIN 5,000 UNIT/0.5 ML INJ SC SCH (14:00)
--- NOTE | 2018-04-24 16:18 | ECHO ---
[email or web address] [address] [address] Main: [phone] Fax: Transthoracic Echocardiogram Name: KARI LEÓN MR#: [id number] Study Date: 04/24/2018 Study Time: 02:56 PM Date of : 1955 Age: 62 year(s) Height: 177.8 cm (70 in.) Weight: 176.45 kg (389 lb.) BSA: 2.77 m2 Gender: Male Examination: Echo Indication: Assess Pulmonary pressures and RV fx Image Quality: Contrast: Requested by: Bridger Galloway BP: 140 mmHg/82 mmHg Heart Rate: Rhythm: Indication: Assess Pulmonary pressures and RV fx Procedure Staff Ground Crew Lines Person: Mata Ward RDCS Reading Physician: Blake Fields MD Requesting Provider: Conclusions: Normal size left ventricle. EF is 64 %. No regional wall motion abnormality. Mildly reduced RV function. Trivial mitral valve regurgitation. The aortic valve is normal in appearance and function. Mild tricuspid regurgitation is present. Right ventricular systolic pressure measures 53mmHg. No pericardial effusion. There is no previous echocardiogram for comparison. Measurements: Chambers Valvular Assessment AV/MV Valvular Assessment TV/PV Normal Normal Normal Name Value Range Name Value Range Name Value Range Ao Venecia (MM): 3.4 cm (2.2 cm-3.7 AV Vmax: 1.76 m/s (1 m/s-1.7 TR Vmax: 3.46 mm/s ( - ) cm) m/s) TR PGmax: 48 mmHg ( - ) IVSd (2D): 1.0 cm (0.6 cm-1.1 AV maxP mmHg ( - ) syst. PAP: 53 mmHg ( - ) cm) LVOT Vmax: 0.82 m/s (0.7 m/s-1.1 PV Vmax: 1.07 m/s (0.6 m/s-0.9 LVDd (2D): 4.8 cm (4.2 cm-5.9 m/s) m/s) cm) MV E Vmax: 1.03 m/s ( - ) PV PGmax: 5 mmHg ( - ) LVDs (2D): 3.1 cm (2.1 cm-4 MV A Vmax: 0.60 m/s ( - ) cm) MV E/A: 1.72 ( - ) LVPWd (2D): 1.3 cm (0.6 cm-1 cm) LVEF (2D): 64 (>=54 %) RVDd(2D): 5.0 cm (1.9 cm-3.8 cmmm) Continued Measurements: Patient: KARI LEÓN Study Date: 04/24/2018 Page 1 of 2 02:56 PM Chambers Valvular Assessment AV/MV Valvular Assessment TV/PV Name Value Name Value Name Value LADs Lon.7 cm MV E' Septal: 0.10 m/s CVP (est.): 5 mmHg LA Area: 21.0 cm2 MV E/E' Septal: 10.00 MV E/E' Lateral: 13.20 Findings: Left Ventricle: Normal size left ventricle. No LV hypertrophy. Normal global systolic LV function. EF is 64 %. No regional wall motion abnormality. Diastolic dysfunction is present. . Right Ventricle: Mildly dilated right ventricle. Mildly reduced RV function. Left Atrium: The left atrium is normal in size. Right Atrium: The right atrium is normal in size. Mitral Valve: The mitral valve is normal in appearance and function. Trivial mitral valve regurgitation. Aortic Valve: The aortic valve is normal in appearance and function. There is no aortic valve regurgitation. Tricuspid Valve: The tricuspid valve appears normal. Mild tricuspid regurgitation is present. The pulmonary artery pressure is mildly increased. Right ventricular systolic pressure measures 53mmHg. Pulmonic Valve: The pulmonic valve is normal in appearance and function. Aorta: The aorta is normal. Pericardium: No pericardial effusion. (No Signature Object) Patient: KARI LEÓN Study Date: 04/24/2018 Page 2 of 2 02:56 PM [id number]
[2018-04-24] MEDS: CLINDAMYCIN 300 MG in NS 100 ML IV SCH ×2 (16:22→21:58)
--- NOTE | 2018-04-24 17:30 | SOAPPROG ---
SOAP Progress Note Assessment/Plan: Assessment: 62-YEAR-OLD MALE STATUS POST I AND D AND DEBRIDEMENT OF A LARGE LEFT PRETIBIAL ABSCESS/NONDIABETIC BY HISTORY/GOOD PEDAL PULSES WOUND DRESSING CHANGED AND THEN PACKED SHOWS GOOD GRANULATING CLEAN TISSUE WITH NO SIGNIFICANT PURULENCE. HE TOLERATED DRESSING CHANGE QUITE WELL HEENT NONICTERIC/CHEST CLEAR/COR REGULAR RHYTHM/ABDOMEN SOFT PROTUBERANT BUT NONTENDER/EXTREMITIES MARKED EDEMA AND VENOUS STASIS CHANGES Plan: DAILY WOUND CHANGES WITH MOIST GAUZE EVENTUAL WOUND VAC PLACEMENT AND PROBABLE EVENTUAL SKIN GRAFT 04/24/18 17:27 Objective: Vital Signs Temp Pulse Resp BP Pulse Ox 36.4 C 74 15 100/56 L 95 04/24/18 16:00 04/24/18 16:00 04/24/18 16:00 04/24/18 16:00 04/24/18 16:00 Microbiology 04/23/18 13:00 Gram Stain - Final Leg - Eswab 04/23/18 13:00 Gram Stain - Final Leg - Tissue Laboratory Results 04/24/18 06:00 04/24/18 06:00 04/23/18 04/24/18 04/25/18 05:59 05:59 05:59 Intake Total 5036 2124 Output Total 250 500 Balance 4786 1624 PT 16.0 SEC (12.0-15.0) H 04/23/18 09:50 INR 1.26 (0.83-1.16) H 04/23/18 09:50 ICD10 Worksheet Patient Problems: Problems Problem Status Onset Acute renal failure (ARF) Acute Left leg cellulitis Acute
--- NOTE | 2018-04-24 17:52 | GCON ---
[f rep st] CONSULTATION CRITICAL CARE CONSULTATION DATE OF CONSULTATION: 04/24/2018 HISTORY OF PRESENT ILLNESS: This patient is a 62-year-old, morbidly obese male who presented with ac yanna left lower extremity pain, has been coming on over the last several days. He had increasing lowe r extremity edema as well as purulent discharge and blistering. He was seen in the emergency departm ent and there were significant concerns for necrotizing fasciitis, so he was taken to the operating r oom for debridement. In the OR, he was found to have more of an abscess but not evidence of necrotiz ing fasciitis. He was washed out and cleaned and extubated fine and given antibiotics and brought ba ck to the ICU for monitoring. Hemodynamics have been stable over this period of time and his pain is significantly improved. He was given ciprofloxacin prior to admission to the ER by his primary care physician and an x-ray in the ER did show some air in this region. REVIEW OF SYSTEMS: Otherwise negative. PAST MEDICAL HISTORY: 1. Includes coronary artery disease with stent placement in the past. 2. Osteoarthritis. 3. Psoriasis and psoriatic arthritis. 4. Hypertension. 5. Hyperlipidemia and possible sleep apnea. SOCIAL HISTORY: He does have a remote smoking history but none currently. No alcohol or IV drug use . FAMILY HISTORY: Noncontributory. MEDICATIONS: At this time include [place], vitamin C, Lipitor, Dulcolax, Ancef, Zyrtec, clindamycin, g lucosamine, subcu heparin, Dilaudid, metoprolol, Zofran, MiraLAX, Senokot, and normal saline. PHYSICAL EXAM: VITAL SIGNS: His T-max was 37. Blood pressure currently 106/60, heart rate of 73, r espirations 18, oxygen saturation 92% on 2 L. GENERAL: He was awake and alert, in no apparent distr ess, sitting up in a chair, able to speak in full sentences without using accessory muscles for breat david. HEENT: Pupils equally round and reactive to light, nonicteric and noninjected. Mucous membra brandy moist without erythema or exudate. NECK: Supple, without adenopathy or jugular vein distention. Breath sounds were clear to auscultation bilaterally without wheezes, rubs, or rales. HEART: Regu lar rate and rhythm without murmurs, rubs, gallops. ABDOMEN: Soft, nontender, nondistended without hepatosplenomegaly. EXTREMITIES: His left lower extremity had extensive dressings which were not re moved, but looked clean and dry. Right lower extremity looked normal. NEUROLOGIC: Nonfocal, includ ing cranial nerves, deep tendon reflexes. OBJECTIVE DATA: Includes a white count of 19.3, hematocrit 35, platelets 265. His basic metabolic p flakito was remarkable for a creatinine of 4.4 and a potassium of 5.0. LFTs were only mildly elevated w ith an AST of 69, ALT of 64, alkaline phosphatase 325, and a total bilirubin normal at 0.9. ASSESSMENT/PLAN: 1. Cellulitis and apparently abscess that was appropriately drained. He is getting Ancef per Infect ious Disease recommendations. He will get normal dressing changes and further management per Surgery . 2. Deep venous thrombosis. Not mentioned above, an ultrasound was performed on his left leg showed a calf deep venous thrombosis, which can be treated I think with subcutaneous heparin for now and sabino oing monitoring. 3. Acute kidney injury, presumably related to above. He is getting IV fluids now. He has urine out put, although there is no Shafer catheter in place and he denies symptoms of prostate disease. An ult rasound is pending. As long as his urine output continues and his creatinine and eventually improves , I do not think a Shafer is mandatory, but he may need that in the very near future. /[id number]/MODL
[2018-04-24] MEDS: ATORVASTATIN CALCIUM 40 MG TAB PO SCH (18:20)
[2018-04-24] MEDS: HEPARIN 10,000 UNIT/10 ML MDV (1,000 UNIT/ML) IVP PRN (19:07)
[2018-04-24 19:26] LABS: INR 1.22 (0.83-1.16); PROTIME(PATIENT) 15.6 SEC (12.0-15.0)
[2018-04-24] MEDS: HEPARIN/DEXTROSE 500 ML IV SCH (20:58)
[2018-04-25] MEDS: NS 1,000 ML IV SCH (01:53)
[2018-04-25] MEDS: HEPARIN/DEXTROSE 500 ML IV SCH (05:25)
[2018-04-25] MEDS: CLINDAMYCIN 300 MG in NS 100 ML IV SCH (05:25)
[2018-04-25 10:34] LABS: PLATELET COUNT 267 10^3/uL (150-400)
[2018-04-25] MEDS: GLUCOSAMINE/CHONDROITIN CAP PO SCH ×2 (11:03→20:44)
[2018-04-25] MEDS: METOPROLOL SUCCINATE XR 50 MG TAB PO SCH (11:04)
[2018-04-25] MEDS: CETIRIZINE 10 MG TAB PO SCH (11:05)
[2018-04-25] MEDS: MULTIVITAMINS 1 EACH TAB PO SCH (11:05)
[2018-04-25] MEDS: SENNOSIDES/DOCUSATE SODIUM TAB PO SCH ×2 (11:05→20:19)
[2018-04-25] MEDS: ASCORBIC ACID 500 MG TAB PO SCH (11:05)
--- NOTE | 2018-04-25 11:32 | HOSPPROG ---
Hospitalist Progress Note Assessment/Plan: DIAGNOSES: # deep abscess of leg status post excision and debridement * Anatomically complex infection, MSSA in wound cultures, negative blood cultures so far * May well need skin grafting at some point # renal failure, suspect this is all acute but last available renal function test was in the [place] when it was normal * Making urine and no current indication for dialysis; renal ultrasound normal without definitive evidence of chronic illness * Finally starting to see some early improvement # metabolic acidosis with elevated lactate and anion gap present * Suspect this is due to renal issues, has improved since yesterday * Could potentially benefit from some bicarbonate supplements # elevated alkaline phosphatase greater than 300, lesser degree of elevation of AST * Improving today, will follow as it is asymptomatic and with normal bilirubin # hyperglycemia, suspect pre diabetes or her early type 2 diabetes * No treatment necessary now but will monitor here and this should be followed carefully as an outpatient * Hemoglobin A1c pending # severe stasis disease of both legs with venous insufficiency, concern for right-sided congestive heart failure as well * Very high risk for recurrent episodes of leg ulcers and skin infections * Will benefit from minimizing edema in the long run # pulmonary hypertension and right-sided CHF * Obesity hypoventilation syndrome and sleep apnea are both likely, other possibilities exist as well * Could benefit from some diuresis at this point but his renal function probably precludes that * Will also benefit from pulmonary function testing, sleep apnea testing, and outpatient pulmonology follow-up, and also weight loss measures # CAD with stents; stable at this time without symptoms and no evidence of left side heart failure Seen by me on hospitalist rounds as well as multidisciplinary rounds and icu I reviewed in detail with doctors to him Jose E and Trista Bah. Per Dr. Bah there is a small amount of serous drainage from the wound which otherwise looks good, and she will plan on having wound VAC placed probably tomorrow or later today. This will be an irrigating wound VAC. PLANS: * Begin wound VAC therapy as above * Will review antibiotics with ID this morning, presumably will change to Ancef for similar with MSSA present and in particular with his renal problems * Wound care * Continue to follow renal function closely * Nephrology consult * renal diet * Will order bedside spirometry here, but recommend he have formal PFTs and pulmonology Clinic at some point * The follow alk-phos and AST for resolution * Follow closely for any signs of developing left heart issues * Follow sugars here and they should be followed in the outpatient setting as well, but no treatment for sugars needed at present; hemoglobin A1c pending I had a very long discussion with the patient about his acute an chronic medical issues. I think in the short run his infection will do fine as long as we are meticulous about ongoing wound care, debridements, and ongoing antibiotic therapy. His renal function needs more tension and will have Nephrology see him, though I am optimistic that he can have ongoing good recovery of his renal function though it is unclear whether his current baseline is still normal or whether there might be some underlying chronic disease that is come up in last 8 months. In the long run it will be critical to manage his pulmonary hypertension and respiratory issues. I had a long discussion with him today about the complications of pulmonary hypertension as well as the various options for helping him to try and improve that and his ability to be active and to avoid shortness of breath. PFTs will be needed, ongoing pulmonology follow-up, pulmonary rehabilitation clinic may be a good idea, and management of sleep apnea will be important. Weight loss would be very helpful and he has had some conversations with his primary care about bariatric surgery since other measures have not helped him. I encouraged him to continue these conversations with his primary care in do anything he can get his weight down significantly. We also again today reviewed that he should be very meticulous about avoiding any injury to the skin of his legs, do daily examination of the legs and feet for any skin wounds and meticulously care for any wounds and seek urgent medical assistance for any thing that looks infected or isn't healing. He is very much on board with all of these ideas during our discussions. SUBJECTIVE: Feels notably better today Still some mild pain but less than yesterday No new symptoms OBJECTIVE Vitals reviewed: Stable overall without fever Manager Inpatient, my review: Sinus Exam: alert oriented Markedly obese skin warm dry color ok resps not labored lungs clear BSs heart regular abd soft nondistended nontender, bowel sounds present limbs severe diffuse stasis changes including inflammation pigmentation in both legs, dressing on his left leg is intact with no evidence of bleeding or drainage of significance iv site ok Laboratory data: Creatinine better today at 3.9; acidosis improved with anion gap down a bit, slightly hyperchloremic today, potassium s better at 4.8 Alk-phos improved at 270 with an AST of 66 normal ALT and bilirubin Calcium low and phosphorus high indicating possibility of secondary hyperparathyroidism from renal disease White blood cell count elevated at 19, hemoglobin is now low at 11 Objective: Vital Signs Temp Pulse Resp BP Pulse Ox 36.6 C 73 13 131/91 H 91 L 04/25/18 08:00 04/25/18 08:00 04/25/18 08:00 04/25/18 08:00 04/25/18 11:03 Microbiology 04/23/18 13:00 Gram Stain - Final Leg - Eswab 04/23/18 13:00 Gram Stain - Final Leg - Tissue Laboratory Results 04/25/18 10:25 04/25/18 04:10 04/24/18 04/25/18 04/26/18 06:59 06:59 06:59 Intake Total 5036 4231 Output Total 250 500 Balance 4786 3731 PT 15.6 SEC (12.0-15.0) H 04/24/18 19:05 INR 1.22 (0.83-1.16) H 04/24/18 19:05 - Time Spent With Patient Time Spent with Patient: greater than 35 minutes Time Spent with Patient: Greater than 35 minutes spent on this patients care, greater than 50% of time spent counseling, educating, and coordinating care regarding the above mentioned plan. ICD10 Worksheet Patient Problems: Problems Problem Status Onset Acute renal failure (ARF) Acute Left leg cellulitis Acute
--- NOTE | 2018-04-25 11:51 | SOAPPROG ---
SOAP Progress Note Assessment/Plan: Assessment: 62-year-old male status post excisional debridement of left pretibial abscess. Patient is weight-bearing as tolerated. Pain is managed with [place] and Tylenol. Plan: WBAT Skin: Daily wound changes with dry gauze. Wound VAC to be placed tomorrow for his left knee. Remain on antibiotics. Probable eventual skin graft. Complex wound and has a lot of undermining - do not want to remove skin over knee as reconstruction will be more difficult over a joint. Hope to get better granulation tissue and may be able to graft with drain under knee Clot in calf: Starting bridge to Coumadin today. Anticipate short course of anticoagulation due this being a calf DVT> Still recommend full anticoagulation since he will be less mobile and has morbid obesity as a co- morbidity. Dispo: Transfer to the [facility] surgery floor today. S: Pain controlled. Exam: General: Pleasant, sitting up in bed, interactive Extremities: Marked edema and venous stasis changes bilaterally. Skin: Wound dressing was changed and packed with a secondary dressing. Patient tolerated dressing change well. Left pretibial wound shows good granulating clean tissue, still needing granulation tissue over fascia. Leaking serous fluid. Surrounding erythema that continues just proximal to the knee. Wound appears very healthy. [place] considerably 04/25/18 11:38 04/25/18 12:59 Objective: Vital Signs Temp Pulse Resp BP Pulse Ox 36.6 C 73 13 131/91 H 91 L 04/25/18 08:00 04/25/18 08:00 04/25/18 08:00 04/25/18 08:00 04/25/18 11:03 Microbiology 04/23/18 13:00 Gram Stain - Final Leg - Eswab 04/23/18 13:00 Gram Stain - Final Leg - Tissue Laboratory Results 04/25/18 10:25 04/25/18 04:10 04/24/18 04/25/18 04/26/18 05:59 05:59 05:59 Intake Total 5035 4231 Output Total 250 500 Balance 4786 7741 PT 15.6 SEC (12.0-15.0) H 04/24/18 19:05 INR 1.22 (0.83-1.16) H 04/24/18 19:05 ICD10 Worksheet Patient Problems: Problems Problem Status Onset Acute renal failure (ARF) Acute Left leg cellulitis Acute
[2018-04-25] MEDS: HYDROCODONE/APAP 5/325 TAB PO PRN ×2 (13:46→21:59)
--- NOTE | 2018-04-25 15:46 | PDINTPN ---
Director Data Management Progress Note Assessment/Plan: 62 M with morbid obesity admitted with LLE abscess/severe cellulitis worriesome for nec fasciitis so taken to OR for extensive debridement and washout. Improved with ABX and dressing changes and remained stable from hemodynamic perspective. He also had RADHA and an US showed a peroneal vein calf DVT. * Cellulitis/abscess- improving from this perspective. Continue abx; wound care to see for wound vac as discussed with Dr. Bah. * RADHA likely related to above with element of at least moderate PH- he continues to have adequate UOP and his creatinine is trending down. * PH- His sPAP is about 53 but there is also mild RV enlargement, suggestive of PH. Though I doubt he has PAH and is not a candidate for PAH therapy, further workup is indicated. He endorses probable RICKY but has as of yet declined workup. Given his leg situation, he now is interested. Once he recovers from his leg, he will need an outpatient sleep study. Ongoing O2 and diuretics should continue as needed. * RICKY- presumed. As above. * Calf DVT- AC as per Drs. Bah and Nilesh Subjective: continues to improve Objective: Vital Signs Temp Pulse Resp BP Pulse Ox 36.6 C 69 13 150/79 H 91 L 04/25/18 12:00 04/25/18 12:00 04/25/18 12:00 04/25/18 12:00 04/25/18 12:00 Microbiology 04/23/18 13:00 Gram Stain - Final Leg - Eswab 04/23/18 13:00 Gram Stain - Final Leg - Tissue Laboratory Results 04/25/18 10:25 04/25/18 04:10 04/24/18 04/25/18 04/26/18 05:59 05:59 05:59 Intake Total 5036 4231 Output Total 250 500 Balance 4786 3731 PT 15.6 SEC (12.0-15.0) H 04/24/18 19:05 INR 1.22 (0.83-1.16) H 04/24/18 19:05 Physical Exam - Physical Exam General Appearance: WD/WN, alert, no apparent distress, obese EENT: PERRL/EOMI Neck: supple Respiratory: lungs clear, normal breath sounds, No respiratory distress, No accessory muscle use Cardiac/Chest: regular rate, rhythm, edema Abdomen: non-tender, soft, No distended Skin: normal color, warm/dry, No cyanosis Lymphatic: no adenopathy Extremities: pedal edema Neuro/Psych: alert, normal mood/affect, oriented x 3 ICD10 Worksheet Patient Problems: Problems Problem Status Onset Acute renal failure (ARF) Acute Left leg cellulitis Acute
--- NOTE | 2018-04-25 15:50 | PCMIDPN ---
Assessment/Plan: Assessment: Left knee abscess secondary to Staphylococcus aureus. Predominantly soft tissue but does abut bone at its deepest manifestation. Patient had a moderate septic response to this infection probably from a late presentation. He has suffered acute renal failure secondary to this response however his creatinine is showing some signs of improvement today. Isolate is clearly methicillin sensitive. We will discontinue the clindamycin today and proceed with cefazolin monotherapy. We will maintain on 1 g q.8 hours given renal insufficiency despite the patient's large body habitus. Once kidney function recovers will increase this to 2 g IV q.8 hours. Plan: 1. Discontinue clindamycin. 2. Continue cefazolin 1 g IV q.8 hours ( renal dose) 3. Follow clinical course and creatinine. Subjective: Patient is doing well today. He is sitting up in a chair in his hospital room. is present. He is in good spirits. Able to ambulate around the room. No fevers or chills. No rash. Objective: Cefazolin # 1 Clindamycin # 2 Vital Signs Temp Pulse Resp BP Pulse Ox 36.6 C 69 13 150/79 H 91 L 04/25/18 12:00 04/25/18 12:00 04/25/18 12:00 04/25/18 12:00 04/25/18 12:00 Microbiology 04/23/18 13:00 Gram Stain - Final Leg - Eswab 04/23/18 13:00 Gram Stain - Final Leg - Tissue Laboratory Results 04/25/18 10:25 04/25/18 04:10 04/24/18 04/25/18 04/26/18 05:59 05:59 05:59 Intake Total 5036 4231 Output Total 250 500 Balance 4786 3731 ESR > 130 MM/HR (0-20) H 04/23/18 09:50 C-Reactive Protein 510.9 mg/L (<10.0) H 04/23/18 09:50 - Physical Exam General Appearance: WD/WN, alert, no apparent distress, obese, non-toxic Respiratory: lungs clear, normal breath sounds, No respiratory distress Cardiac/Chest: regular rate, rhythm, No tachycardia Extremities: non-tender, swelling, erythema, No normal inspection Skin: normal color, warm/dry, No rash Neuro/Psych: alert, normal mood/affect, oriented x 3 ICD10 Worksheet Patient Problems: Problems Problem Status Onset Acute renal failure (ARF) Acute Left leg cellulitis Acute
[2018-04-25] MEDS ORDERED: WARFARIN SODIUM 5 MG TAB PO ONE (17:15)
[2018-04-25] MEDS: ATORVASTATIN CALCIUM 40 MG TAB PO SCH (17:55)
--- NOTE | 2018-04-25 20:44 | GCON ---
[f rep st] CONSULTATION NEPHROLOGY CONSULTATION DATE OF CONSULTATION: 04/25/2018 REASON FOR CONSULTATION: Acute kidney injury. HISTORY OF PRESENT ILLNESS: This is an extremely pleasant 62-year-old male with a past medical histo ry significant primarily for psoriasis, on chronic immunosuppressive medications, coronary artery dis ease, and hypertension, who now presents with acute kidney injury. History is obtained from the claudia ent, who is a good historian, as well as from the medical staff and the medical record. The patient's primary care physician is Dr. Johann Rios. He admits that he has recently not follo wed up with Dr. Rios. However, on previous blood tests, dating back to 2014, his renal function has been normal, and the patient has never heard that he has had significant issues with his kidney function. The patient's present illness began 5 days prior to admission on the , when he began to have a jp den onset of left calf and knee pain, fevers, and drainage. The patient does have significant chroni c venous insufficiency in this area. The patient had started initially on oral ciprofloxacin, and franklyn agosto was admitted for definitive care. Prior to the admission, he had noted polyuria and polydip maurice. The patient did not have a known history of diabetes prior to admission, but his glucoses have been mildly elevated since being in the hospital here. During this admission, the patient has been followed by the Infectious Disease service. He has been treated with penicillin, cefazolin, and clindamycin. He is presently on vancomycin, but levels have been relatively low. His organism was isolated as MSSA. At the time of admission, the patient's creatinine was 4.4. It has now decreased slightly to 3.9. H is blood pressure has been ranging between 106-150. Over the first 2 days, he has received significa nt IV fluids, with input greater than output. Initially, he was somewhat oliguric, but now his urine output is increasing. With this, his creatinine has decreased to 3.9. A renal ultrasound was karishma l. A urinalysis was completely normal. His fractional excretion of sodium was low. The patient was taking diclofenac for year and a half prior to this admission. As related to the above findings, we are asked by Dr. Galloway to assist the patient's renal diagnosis and management. PAST MEDICAL HISTORY: 1. Coronary artery disease. 2. Obesity. 3. Chronic venous insufficiency. 4. Psoriasis. SURGICAL HISTORY: No major history. FAMILY HISTORY: Noncontributory. SOCIAL HISTORY: The patient was born in [place]. He has lived here for 20 years. He has worked in [employer]. He is . He has 1 son in [place]. He does not smoke cigarettes. He drinks small to moderate amounts of alcohol. REVIEW OF SYSTEMS: A full 12 systems review was obtained. It was completely negative except for iss ues relating to his present illness, and his lower extremity edema. He does have to urinate 3 times at night at home, although this was more frequent prior to admission. PHYSICAL EXAM: GENERAL APPEARANCE: At the time of exam, the patient is pleasant, appropriate, and a lert. VITAL SIGNS: Temperature 36.5, pulse 73, blood pressure 115/78. HEENT: Eyes sclerae clear. Oropharynx clear with good dentition. NECK: Nontender, obese. LUNGS: Clear to auscultation bilat erally. CARDIOVASCULAR: Regular rhythm without gallops or rubs. ABDOMEN: Obese, nontender. /RE CTAL: Deferred. EXTREMITIES: The patient does have a dressing in the upper outer portion of his le ft lower extremity. He has evidence of chronic venous insufficiency and skin changes relating to thi s. INTEGUMENT: Clear except for his lower extremities. NEURO: No focal findings. LABORATORY STUDIES: Sodium 141, potassium 4.8, bicarb 19, creatinine 3.9, phosphorus 7.3. C-reactiv e protein 510. Urinalysis negative. White count 14.5, hematocrit 35.4, platelet count 267. IMPRESSION/PLAN: 1. Elevated creatinine. The patient presented with a markedly elevated creatinine. This occurred i n the setting of an infection. Prior to this time, he was having some polydipsia and polyuria, which I suspect related to hyperglycemia with an osmotic diuresis. The patient was taking some nonsteroid als. During this admission, he received some vancomycin, but levels were relatively low. It has bee n discontinued. He has not received other nephrotoxins. All of his testing has generally been negat julio relating to renal concerns. A fractional excretion of sodium was low. Since receiving intraveno us fluids, his creatinine is now beginning to fall. 2. I do suspect the patient has hemodynamically-mediated acute kidney injury, although I cannot rule out an element of nonoliguric acute tubular necrosis. I expect continued improvement. We will cat richardson. 3. Hypertension. The patient's blood pressure is typically well controlled on metoprolol as a solo agent. 4. Cellulitis. This is being treated and responding to therapy. 5. Anemia. This is mild. It is likely relating to the current illness. This should be watched in the future to assure it corrects. 6. Hyperglycemia. A hemoglobin A1c is pending. Thank you for allowing us to precipitate in this gentleman's care. We will continue following closel y with you. /[id number]/MODL
[2018-04-26] MEDS: NS 1,000 ML IV SCH ×3 (01:14→20:01)
[2018-04-26] MEDS: HEPARIN/DEXTROSE 500 ML IV SCH ×2 (05:44→20:20)
[2018-04-26 08:12] LABS: INR 1.38 (0.83-1.16); PROTIME(PATIENT) 17.1 SEC (12.0-15.0)
[2018-04-26] MEDS: CETIRIZINE 10 MG TAB PO SCH (08:26)
[2018-04-26] MEDS: MULTIVITAMINS 1 EACH TAB PO SCH (08:26)
[2018-04-26] MEDS: METOPROLOL SUCCINATE XR 50 MG TAB PO SCH (08:27)
[2018-04-26] MEDS: GLUCOSAMINE/CHONDROITIN CAP PO SCH ×2 (08:27→20:03)
[2018-04-26] MEDS: ASCORBIC ACID 500 MG TAB PO SCH (08:27)
[2018-04-26] MEDS: SENNOSIDES/DOCUSATE SODIUM TAB PO SCH ×2 (09:34→21:06)
--- NOTE | 2018-04-26 10:26 | HOSPPROG ---
Hospitalist Progress Note Assessment/Plan: #RADHA: multifactorial. Having good UOP. Cr improving, now 3.1. Avoid nephrotoxins #Left leg DVT: heparin gtt/coumadin. Not Lovenox candidate with RADHA. INR goal 2 #Left leg abscess/cellulitis, MSSA: debrided. IV Ancef. Wound vac per surgery today #CAD: h/o stents #Mod pulm HTN: pressure 53mmHg. Rec outpatient sleep study, PFTs #Deconditioning: home PT recommended #Hyperglycemia: A1c pending #Leukocytosis: down to 14. Due to abscess. Blood cultures negative #Diet: cardiac #DVT ppx: heparin gtt Subjective: didn't sleep much last night. No CP or SOB Objective: Vital Signs Temp Pulse Resp BP Pulse Ox 36.5 C 72 20 118/77 94 04/26/18 07:33 04/26/18 07:33 04/26/18 07:33 04/26/18 07:33 04/26/18 07:33 Microbiology 04/23/18 13:00 Gram Stain - Final Leg - Eswab 04/23/18 13:00 Gram Stain - Final Leg - Tissue Laboratory Results 04/26/18 07:56 04/26/18 07:56 04/25/18 04/26/18 04/27/18 05:59 05:59 05:59 Intake Total 4231 400 3867 Output Total 500 1900 Balance 3731 -1500 3867 PT 17.1 SEC (12.0-15.0) H 04/26/18 07:56 INR 1.38 (0.83-1.16) H 04/26/18 07:56 - Physical Exam Constitutional: obese Eyes: PERRL Ears, Nose, Mouth, Throat: moist mucous membranes Cardiovascular: regular rate and rhythym Respiratory: no respiratory distress Gastrointestinal: normoactive bowel sounds, soft, non-tender abdomen Genitourinary: no bladder fullness Skin: other (significant venous stasis changes BL legs. Left leg wrapped) Neurologic: AAOx3, CN II-XII Intact Psychiatric: interacting appropriately ICD10 Worksheet Patient Problems: Problems Problem Status Onset Acute renal failure (ARF) Acute Left leg cellulitis Acute
[2018-04-26] MEDS: HEPARIN 10,000 UNIT/10 ML MDV (1,000 UNIT/ML) IVP PRN (11:29)
[2018-04-26] MEDS: HYDROCODONE/APAP 5/325 TAB PO PRN ×2 (11:42→20:02)
--- NOTE | 2018-04-26 12:54 | SOAPPROG ---
SOAP Progress Note Assessment/Plan: Assessment: RADHA, not oliguric, creat is improving Leg abscess doing better anemia, stable acidosis improving Plan: No urgent HD needs continue to follow lyalana vol and renal function continue antibiotics encouraged nutrition encouraged up as able no need for bicarb supps at this point 04/26/18 12:51 Subjective: up to chair at bedside no cp sob nausea or vomiting appetite better energy improving spirits good sleeping OK Objective: Vital Signs Temp Pulse Resp BP Pulse Ox 36.7 C 66 18 136/76 H 98 04/26/18 11:53 04/26/18 11:53 04/26/18 11:53 04/26/18 11:53 04/26/18 11:53 Microbiology 04/23/18 13:00 Gram Stain - Final Leg - Eswab 04/23/18 13:00 Gram Stain - Final Leg - Tissue Laboratory Results 04/26/18 07:56 04/26/18 07:56 04/25/18 04/26/18 04/27/18 05:59 05:59 05:59 Intake Total 4231 400 3867 Output Total 500 1900 Balance 3731 -1500 3867 PT 17.1 SEC (12.0-15.0) H 04/26/18 07:56 INR 1.38 (0.83-1.16) H 04/26/18 07:56 Physical Exam - Physical Exam General Appearance: alert, obese Neck: supple Respiratory: No rhonchi, No wheezing, No pleural rub Cardiac/Chest: regular rate, rhythm, edema, No friction rub Abdomen: normal bowel sounds, non-tender, soft Extremities: swelling Neuro/Psych: alert, normal mood/affect, oriented x 3 ICD10 Worksheet Patient Problems: Problems Problem Status Onset Acute renal failure (ARF) Acute Left leg cellulitis Acute
--- NOTE | 2018-04-26 15:21 | WOCRNPDOC ---
JASMIN Advanced Assessment Note - Skin Integrity Problem, Advanced Assess Left Leg Dressing Type: Gauze Dressing Description: Intact, Saturated Exudate Amount: Excessive (patient draining large amounts of serous fluid from tunneling areas and the wound bed had minimal serosanguenous drainage.) Exudate Color: Yellow, Reddish/Yellow Exudate Characteristic(s): Serous Integumentary Issue Intervention: Dressing Changed Kristyn Wound Tissue: Swollen, Intact Kristyn Wound Swelling: Moderate Wound Bed Color: [place], Red Wound Bed Constitution: Tunneling (13 cm at 2 oclock), Undermining (11 oclock: 8.5 deep and about 4 cm wide, narrows to 4 cm deep at 12 oclock and reopens at 2 oclock into a wide (4-5 cm wide pocket that tunnels 13 cm superiorly)), Muscle , Subcutaneous Fat Wound Edges: Attached, Not Attached Site Odor: Moderate, Foul Site Measurement - Head-to-Toe Length X Width X Depth (cm): 8.5x11.8x2.3 Skin Integrity Problem Comment: Negative stemmers sign. Flushed with ns and dried with gauze. One piece of 13 cm white foam (large) placed into two oclock tunnel and then 5 pieces of black foam (large block dressing) placed into pockets and over wound bed. Vac started at -125 mm Hg continuous suction with no leaks. Patient tolerated procedure very well. Next vac change due Wed. Sandy Felix RN's in room for care. Report given to Dr. Mckeon.
--- NOTE | 2018-04-26 15:27 | ASMTCMCOM ---
CM Note CM Note Notes: CM spoke to BONNIE Arvizu regarding d/c POC. Pt is having a wound vac placed today. CM spoke to Dr. Dean and pt will need 4 weeks of ivabx. Pt will have a PICC line placed at some point. CM met w/ pt for dispo planning. Pt is agreeable to having referral made to [facility], [facility] and [facility]. CM reached out to Kelley at [facility] to start the application. [facility] is able to accept. CM to follow. Plan: TR; RN with [facility] Date Signed: 04/26/2018 03:26 PM Electronically Signed By:ENOCH Puentes
[2018-04-26] MEDS ORDERED: WARFARIN SODIUM 5 MG TAB PO ONE (16:00)
--- NOTE | 2018-04-26 16:07 | PCMIDPN ---
Assessment/Plan: Assessment/Plan: * Left lower extremity abscess due to MSSA with concomitant MSSA bacteremia: Clinically improved post debridement. Wound VAC placed today. Blood cultures also show growth of MSSA. Echocardiogram without overt findings to suggest endocarditis. Will repeat blood cultures today to assess for clearing of bacteremia. Continue cefazolin adjusted for renal insufficiency. Will need a 4 week course of antibiotic therapy based on presence of bacteremia. 04/26/18 16:05 Subjective: Patient feeling better with less left lower extremity pain. Wound VAC placed earlier today. Objective: Vital Signs Temp Pulse Resp BP Pulse Ox 37.3 C 67 16 173/82 H 95 04/26/18 15:25 04/26/18 15:25 04/26/18 15:25 04/26/18 15:25 04/26/18 15:25 Microbiology 04/23/18 13:00 Gram Stain - Final Leg - Tissue 04/23/18 13:00 Gram Stain - Final Leg - Eswab Laboratory Results 04/26/18 07:56 04/26/18 07:56 04/25/18 04/26/18 04/27/18 05:59 05:59 05:59 Intake Total 4231 400 3867 Output Total 500 1900 Balance 3731 -1500 3867 ESR > 130 MM/HR (0-20) H 04/23/18 09:50 C-Reactive Protein 510.9 mg/L (<10.0) H 04/23/18 09:50 Cefazolin # 2 Blood cultures 1/2 sets MSSA Wound cultures MSSA Echocardiogram mild TR - Physical Exam General Appearance: alert, no apparent distress, obese EENT: No scleral icterus, No conjunctival petechiae Respiratory: lungs clear, No respiratory distress Cardiac/Chest: regular rate, rhythm Extremities: inflammation (Left lower extremity with wound VAC in place just below knee; erythema previously demarcated has receded with some residual in posterior thigh with mild warmth and tenderness) Abdomen: non-tender, No distended Skin: No embolic lesions - Time Spent With Patient Time Spent with Patient: greater than 25 minutes Time Spent with Patient: Greater than 25 minutes spent on this patients care, greater than 50% of time spent counseling, educating, and coordinating care regarding the above mentioned plan. ICD10 Worksheet Patient Problems: Problems Problem Status Onset Acute renal failure (ARF) Acute Left leg cellulitis Acute
--- NOTE | 2018-04-26 16:26 | SOAPPROG ---
SOAP Progress Note Assessment/Plan: Assessment: 62yo M c LLE abscess s/p debridement and VAC placement - doing well, has been afebrile - pain is well controlled. He has been ambulating, he is WBAT - VAC placed earlier today, I saw pictures of the site. DOnt appreciate any necrosis. Overall looks good, has big superior flap which will hopefully adhere. - ID following, Cx growing MSSA, abx appropriate, 4wk total course - next eval Weds Plan: 04/26/18 16:24 04/26/18 16:25 Subjective: patient feels well, tolerated VAC placement without issue earlier today Objective: Vital Signs Temp Pulse Resp BP Pulse Ox 37.3 C 67 16 173/82 H 95 04/26/18 15:25 04/26/18 15:25 04/26/18 15:25 04/26/18 15:25 04/26/18 15:25 Microbiology 04/23/18 13:00 Gram Stain - Final Leg - Tissue 04/23/18 13:00 Gram Stain - Final Leg - Eswab Laboratory Results 04/26/18 07:56 04/26/18 07:56 04/25/18 04/26/18 04/27/18 05:59 05:59 05:59 Intake Total 4231 400 3867 Output Total 500 1900 Balance 3731 -1500 3867 PT 17.1 SEC (12.0-15.0) H 04/26/18 07:56 INR 1.38 (0.83-1.16) H 04/26/18 07:56 ICD10 Worksheet Patient Problems: Problems Problem Status Onset Acute renal failure (ARF) Acute Left leg cellulitis Acute
[2018-04-26] MEDS: ATORVASTATIN CALCIUM 40 MG TAB PO SCH (18:06)
[2018-04-26] MEDS: ceFAZolin 2 GM/DEXTROSE 100 ML IV SCH (18:07)
[2018-04-26] MEDS ORDERED: METOPROLOL TARTRATE 25 MG TAB PO ONE (21:26)
[2018-04-27] MEDS ORDERED: WARFARIN SODIUM 5 MG TAB PO SCH (16:00)
[2018-04-27 20:26] LABS: INR 3.52 (0.83-1.16)
--- NOTE | 2018-04-27 21:45 | PCMIDPN ---
Assessment/Plan: # LLE Cellulitis with abscess s/p debridement: wound vac in place today, minimal signs of erythema remain. Plan to continue renal dosed cefazolin # MSSA Bacteremia: 04/26 blood cx pending, continue renal dosed cefazolin. If blood culture is negative tomorrow can place PICC line. Plan [address] PICC 04/28 if blood culture still negative. # ARF: CrCl 30 today # Venous insufficiency Meds Cefazolin 2gm IV q12h Subjective: feeling well, walked entire king today, no c/o. constipated Micro 04/23 blood cx (2) MSSA and Leg Tissue: mssa 04/26 blood cx (2) NGTD General: Very pleasant and cheerful obese male, fluent speech no acute distress Cardiovascular distant heart sounds regular rate, no murmur Chest: Breathing easy, no crackles Left lower extremity: Edema, hyperpigmentation in a stocking distribution consistent with chronic venous insufficiency, wound VAC placed left lateral upper gonzalez. No erythema remains, mild warmth. PIV bilateral upper extremity C/ D/I Objective: Vital Signs Temp Pulse Resp BP Pulse Ox 36.6 C 72 12 140/69 H 95 04/26/18 23:10 04/26/18 23:10 04/26/18 23:10 04/26/18 23:10 04/26/18 23:10 Laboratory Results 04/26/18 07:56 04/26/18 07:56 04/26/18 04/27/18 04/28/18 05:59 05:59 05:59 Intake Total 400 5647 Output Total 1900 Balance -1500 5647 ESR > 130 MM/HR (0-20) H 04/23/18 09:50 C-Reactive Protein 510.9 mg/L (<10.0) H 04/23/18 09:50 - Time Spent With Patient Time Spent with Patient: greater than 25 minutes Time Spent with Patient: Greater than 25 minutes spent on this patients care, greater than 50% of time spent counseling, educating, and coordinating care regarding the above mentioned plan. ICD10 Worksheet Patient Problems: Problems Problem Status Onset Acute renal failure (ARF) Acute Left leg cellulitis Acute
--- NOTE | 2018-04-27 22:30 | ASMTCMCOM ---
CM Note CM Note Notes: Carolina from [facility] met w/ pt today. Pt is agreeable to using [facility] for ivabx. Nithin Mckeon signed the wound vac prescription. CM awaiting for [facility] to be up again to get wound measurements to complete wound vac prescription and to fax it to [facility]. CM left the wound vac prescription in pts chart. CM to follow. Plan: TR; BONNIE w/ [facility] Date Signed: 04/27/2018 02:31 PM Electronically Signed By:ENOCH Puentes
[2018-04-28] MEDS: ASCORBIC ACID 500 MG TAB PO SCH ×2 (05:40→07:58)
[2018-04-28] MEDS: CETIRIZINE 10 MG TAB PO SCH ×2 (05:41→07:59)
[2018-04-28] MEDS: SENNOSIDES/DOCUSATE SODIUM TAB PO SCH ×4 (05:41→21:54)
[2018-04-28] MEDS: GLUCOSAMINE/CHONDROITIN CAP PO SCH ×3 (05:41→21:54)
[2018-04-28] MEDS: ATORVASTATIN CALCIUM 40 MG TAB PO SCH ×2 (05:41→17:48)
[2018-04-28] MEDS: ceFAZolin 2 GM/DEXTROSE 100 ML IV SCH ×4 (05:41→23:14)
[2018-04-28] MEDS: METOPROLOL SUCCINATE XR 50 MG TAB PO SCH ×2 (05:41→07:59)
[2018-04-28] MEDS: MULTIVITAMINS 1 EACH TAB PO SCH ×2 (05:41→07:58)
[2018-04-28 05:50] LABS: INR 4.22 (0.83-1.16); PROTIME(PATIENT) 40.2 SEC (12.0-15.0)
--- NOTE | 2018-04-28 08:50 | HOSPPROG ---
Hospitalist Progress Note Assessment/Plan: 62-year-old male presenting with left lower extremity abscess and cellulitis complicated by acute renal failure, acute lactic acidosis. Today is my first encounter w the patient, chart reviewed. * left lower extremity cellulitis with abscess status post debridement -wound VAC in place * MSSA bacteremia -infectious Disease is okay with PICC line placement and will need 4 weeks of IV antibiotics -spoke w microbiology this morning and set of blood cx from 04/26 is negative, will order PICC -on cefazolin 2 g IV q.12 hours * acute renal insufficiency -reviewed his care with Dr Nicholson -improving * venous insufficiency/chronic * left leg DVT -INR is therapeutic at 4.2 -will DC heparin drip -hold coumadin tonight * coronary artery disease with history of stents -on beta-venancio * hyperglycemia -A1C is 7,now diagnosed with diabetes -will ask dietary to see and update him on this finding -oral agents can be hard on the kidneys, will discuss w nephrology * deconditioning * moderate pulmonary hypertension -recommending outpatient sleep study *Morbid Obesity -BMI is 55 *Plan: PICC to be placed, patient would prefer to go home, home care is being set up, he is willing to hire a private RN to help with wound care, etc if needed. Subjective: Wilbert has no appetite, feeling better overall. Objective: Vital Signs Temp Pulse Resp BP Pulse Ox 36.4 C 67 18 152/73 H 93 04/28/18 07:48 04/28/18 07:48 04/28/18 07:48 04/28/18 07:48 04/28/18 07:48 Laboratory Results 04/26/18 07:56 04/28/18 05:07 04/27/18 04/28/18 04/29/18 05:59 05:59 05:59 Intake Total 5647 500 Balance 5647 500 PT 40.2 SEC (12.0-15.0) H 04/28/18 05:07 INR 4.22 (0.83-1.16) H 04/28/18 05:07 - Physical Exam Constitutional: no apparent distress, appears nourished, not in pain, chronically ill appearing, obese Eyes: PERRL Ears, Nose, Mouth, Throat: hearing normal Cardiovascular: regular rate and rhythym, edema (bilateral lower extremity) Respiratory: no respiratory distress, reduced air movement Gastrointestinal: normoactive bowel sounds, other (large and round) Skin: other (has chronic venous insufficiency, discoloration to both ankle area. Wound vac in place on left upper gonzalez area. ) Musculoskeletal: generalized weakness Neurologic: AAOx3 Psychiatric: interacting appropriately ICD10 Worksheet Patient Problems: Problems Problem Status Onset Acute renal failure (ARF) Acute Left leg cellulitis Acute
[2018-04-28] MEDS ORDERED: FAMOTIDINE 20 MG/NACL 50 ML IV ONE (09:11)
[2018-04-28] MEDS ORDERED: ALTEPLASE 2 MG VIAL IVP PRN (10:21)
--- NOTE | 2018-04-28 10:37 | SOAPPROG ---
SOAP Progress Note Assessment/Plan: Assessment: RADHA, not oliguric, creat is continuing to improve Leg abscess doing better, up to chair, walks in halls anemia, stable acidosis resolved hypernatremia (mild) needs to drink more free water Plan: No HD needs continue to follow estrella salmeron and renal function continue antibiotics encouraged nutrition encouraged up as able no need for bicarb supps at this point hopefully to physical rehab soon will likely not need renal follow up 04/26/18 12:51 04/28/18 10:34 Subjective: Feeling overall better no cp sob nausea or vomiting spirits good motivated to get better sleeping OK appetite OK Objective: Vital Signs Temp Pulse Resp BP Pulse Ox 36.4 C 67 18 152/73 H 93 04/28/18 07:48 04/28/18 07:48 04/28/18 07:48 04/28/18 07:48 04/28/18 07:48 Laboratory Results 04/26/18 07:56 04/28/18 05:07 04/27/18 04/28/18 04/29/18 05:59 05:59 05:59 Intake Total 5647 500 Balance 5647 500 PT 40.2 SEC (12.0-15.0) H 04/28/18 05:07 INR 4.22 (0.83-1.16) H 04/28/18 05:07 Physical Exam - Physical Exam General Appearance: alert, obese Neck: supple Respiratory: No rhonchi, No wheezing, No pleural rub Cardiac/Chest: normal peripheral pulses, edema, No friction rub Abdomen: normal bowel sounds, non-tender, soft Skin: other (changes of venous stasis) Extremities: swelling Neuro/Psych: alert, normal mood/affect, oriented x 3 ICD10 Worksheet Patient Problems: Problems Problem Status Onset Acute renal failure (ARF) Acute Left leg cellulitis Acute
[2018-04-28] MEDS ORDERED: HYDROmorphONE/DILAUDID 2 MG/ML INJ IVP PRN (11:55)
[2018-04-28] MEDS ORDERED: HYDROmorphONE/DILAUDID 1 MG/ML INJ IVP ONE (12:00)
--- NOTE | 2018-04-28 14:36 | ASMTCMCOM ---
CM Note CM Note Notes: Spoke w/ MANAGER PLANNING, pt will dc home with wound vac, [facility] for IV abx, and [facility]. CM spoke w/Prabhakar at [facility] and paperwork sent, per scruff worker, pt will need extra canisters, at least 5 per day. [facility] will fax form to fill out to justify extra canisters. inspector canned food reconditioning also recommends that pt dc on Thursday and go to the wound care clinic on Thu/Thu of next week. And then follow up with Dr Mckeon on that Monday 05/07. CM in process of scheduling appts. CM discussed this with pt and Maxine, per [facility], RN will come twice/day until pt and feel comfortable with abx administration. Also gave them other homecare resources. DC Plan: [facility](RN)/ [facility] wound vac Date Signed: 04/28/2018 02:35 PM Electronically Signed By:Jennifer Bravo RN
--- NOTE | 2018-04-28 15:36 | WOCRNPDOC ---
WOCRN Advanced Assessment Note - Skin Integrity Problem, Advanced Assess Left Leg Dressing Type: Black Vac Foam (x5), White Vac Foam (x1), Wound Vac Dressing Description: Clean/Dry, Intact Closure Description: Not Approximated Exudate Amount: Excessive Exudate Color: Red Exudate Characteristic(s): Bloody, Sanguinous Integumentary Issue Intervention: Dressing Changed Kristyn Wound Tissue: Blanching, Swollen, Painful/Tender Kristyn Wound Swelling: Moderate Wound Bed Color: Red Wound Bed Constitution: Granulation Tissue (60%), Subcutaneous Fat (40%) Wound Edges: Attached, Not Attached, Irregular Site Measurement - Head-to-Toe Length X Width X Depth (cm): 7.9x11.6x2.3 Skin Integrity Problem Comment: Emeli Saldivar ID and Nilesh SR VICE PRESIDENT in room for vac change. Wound vac clamped and turned off. Adhesive remover spray applied to drape edges. Normal saline applied to black foam to release foam. Time out called by Emeli Saldivar to give patient pain meds before proceeding any further. BONNIE Patel gave patient 1 mg dilaudid. Remainder of foam then removed from wound bed, and wound bed cleaned with normal saline. One piece of large white foam cut to fit in 11cm tunnel at 2 oclock. Four pieces of large black foam cut to fit into: 6cm tunnel at 11 oclock, and areas of undermining to 4cm at 12 oclock. Patient still with a lot of pain, so Amanda RN gave another 1mg of dilaudid. One piece large black foam cut to fit entire wound bed. Drape applied over black foam. Wound vac set to suction at -125mmHg with no leaks noted. Patient has tendency to externally rotate left leg, with drainage that appears at wound edge with the potential to get under drape. This area was wiped dry several times before placing final drape piece over and applying suction. Patient does have excessive lymph drainage combined with sanguinous drainage that currently fills one 1L canister per day. Telma Mejia consulted with Jennifer in to have order of home vac canisters placed for when patient is discharged so that patient doesn't run out on first day with home care. Patient will potentially discharge on Thursday. Patient will follow up with outpatient wound clinic and have [facility] for wound vac changes. Education provided to patient's Maxine re: applying drape for leaks, troubleshooting the home vac , battery life of home vac, and special attention to the 1 800 number for assistance when outpatient. Wound care will round again on Thursday. Telma JORGE in room, assisted and supervised. Report given and pictures sent to Nithin Mckeon.
--- NOTE | 2018-04-28 15:54 | PCMIDPN ---
Assessment/Plan: # LLE Cellulitis with abscess s/p debridement: large wound L gonzalez tracking into lower thigh, good granulation tissue in the base. faint erythema lateral to wound and lower lateral thigh. Will need skin graft. --continue cefazolin # MSSA Bacteremia: 04/26 blood cx negative. --Plan 4 weeks IV antibiotics. --Place PICC # ARF: CrCl 60s --increase cefazolin up to q8h # Venous insufficiency: venous mapping as outpatient Meds Cefazolin 2gm IV q8h Micro 04/23 blood cx (2) MSSA and Leg Tissue: mssa 04/26 blood cx (2) NGTD Subjective: no specific c/o pain with wound vac change Objective: Vital Signs Temp Pulse Resp BP Pulse Ox 36.4 C 67 18 152/73 H 93 04/28/18 07:48 04/28/18 07:48 04/28/18 07:48 04/28/18 07:48 04/28/18 07:48 Microbiology 04/23/18 13:00 Gram Stain - Final Leg - Tissue 04/23/18 13:00 Gram Stain - Final Leg - Eswab Laboratory Results 04/26/18 07:56 04/28/18 05:07 04/27/18 04/28/18 04/29/18 05:59 05:59 05:59 Intake Total 5647 500 Output Total 400 Balance 5647 500 -400 ESR > 130 MM/HR (0-20) H 04/23/18 09:50 C-Reactive Protein 510.9 mg/L (<10.0) H 04/23/18 09:50 General: Very pleasant and cheerful obese male, fluent speech no acute distress Cardiovascular distant heart sounds regular rate, no murmur Chest: Breathing easy, no crackles Left lower extremity: Edema, hyperpigmentation in a stocking distribution consistent with chronic venous insufficiency, tissue at base of wound on vac good granulation no purulence, mild erythema lateral lower thigh and upper calf PIV bilateral upper extremity C/D/I - Time Spent With Patient Time Spent with Patient: greater than 35 minutes (care coordinated w wound, RN. Plan of care discussed w patient and ) Time Spent with Patient: Greater than 35 minutes spent on this patients care, greater than 50% of time spent counseling, educating, and coordinating care regarding the above mentioned plan. ICD10 Worksheet Patient Problems: Problems Problem Status Onset Acute renal failure (ARF) Acute Left leg cellulitis Acute
[2018-04-29] MEDS: HYDROCODONE/APAP 5/325 TAB PO PRN ×3 (04:15→22:23)
[2018-04-29 04:40] LABS: PLATELET COUNT 273 10^3/uL (150-400)
[2018-04-29 06:49] LABS: INR 3.01 (0.83-1.16); PROTIME(PATIENT) 31.1 SEC (12.0-15.0)
[2018-04-29] MEDS: ASCORBIC ACID 500 MG TAB PO SCH (09:06)
[2018-04-29] MEDS: GLUCOSAMINE/CHONDROITIN CAP PO SCH ×2 (09:06→20:34)
--- NOTE | 2018-04-29 09:06 | PDIAF ---
- Diagnosis Diagnosis: Left lower extremity cellulitis with bacteremia Code Status: Full Code - Medication Management Discharge Medications: Medications to Continue on Transfer Ascorbic Acid [Vitamin C 500 mg (*)] 500 mg PO DAILY 04/23/18 [Last Taken ] Atorvastatin Calcium [Lipitor 40 mg (*)] 80 mg PO DAILY18 04/23/18 [Last Taken 04/22/18] Cetirizine [ZyrTEC 10 mg (*)] 10 mg PO DAILY 04/23/18 [Last Taken 04/23/18] Ciprofloxacin [Cipro] 500 mg PO BID 04/23/18 [Last Taken 04/23/18] Diclofenac Sodium [Voltaren-XR] 100 mg PO DAILY 04/23/18 [Last Taken 04/23/18] Glucosamine/Chondroitin [Glucosamine/Chondroitin (*)] 1 each PO BID 04/23/18 [ Last Taken 04/23/18] Herbals/Supplements -Info Only 1 ea PO DAILY 04/23/18 [Last Taken Unknown] Ixekizumab [Taltz Autoinjector] 80 mg SQ Q30D 04/23/18 [Last Taken 10 Days Ago ~ 04/13/18] Metoprolol Succinate Xr [Toprol Xl 50 mg (*)] 50 mg PO DAILY 04/23/18 [Last Taken 04/23/18] Multivitamins [Multivitamin (*)] 1 each PO DAILY 04/23/18 [Last Taken 04/23/18] Care Home Antibiotics: Ancef 6 mg/24 hr Care Home Antibiotic Stop Date: 05/23/18 Discharge Medications: Refer to the Discharge Home Medication list for PRN reason. PICC Care - Routine: Yes - Orders Additional Instructions: Wound Care Wound Vac Wound vac set to -125mmHG continuous. Thin piece of large white foam in 2 oclock tunnel; tunnel extends to 11cm as of 04/28/18. Large black foam used for the remainder of the vac dressing, with 4 small pieces cut to fit the tunnel at 11 oclock (6cm length extension as of 04/28), and area of undermining at 12 oclock (4cm length extension). Wound vac canisters will require frequent changes , as inpatient wound vac output approximately 1000mL/day. It is necessary to have extra wound vac canisters on hand, since the capacity is much smaller ( 200mL). Please follow up with Dr. Mckeon within a week of April 30. Please call his office to schedule an appointment. You may reach the [facility] at [phone] for an appointment and continued management of your wounds. Please call them [facility] to schedule your appointment as they fill up quickly. If before that time you have any issues please follow up with Dr. Mckeon. - Labs/Radiology CBC w/diff Date: 05/03/18 (Fax to Dr. Storey [phone]) CMP Date: 05/03/18 (Fax to Dr. Storey [phone]) Call or Fax Lab and Imaging Results to: Needs weekly CBC and CMP fax to the same number - Follow Up Care Current Providers and Referrals: Johann Rios MD [Primary Care Provider] - As per Instructions Paul Storey MD [Medical Doctor] - (Patient has an appointment with Dr. Storey at the [facility] ThursdayMay 04 at 11:30 a.m. In the morning)
[2018-04-29] MEDS: METOPROLOL SUCCINATE XR 50 MG TAB PO SCH (09:07)
[2018-04-29] MEDS: CETIRIZINE 10 MG TAB PO SCH (09:07)
[2018-04-29] MEDS: MULTIVITAMINS 1 EACH TAB PO SCH (09:07)
--- NOTE | 2018-04-29 09:08 | HOSPPROG ---
Hospitalist Progress Note Assessment/Plan: 62-year-old male presenting with left lower extremity abscess and cellulitis complicated by acute renal failure, acute lactic acidosis. Met with the patient with Dr Martínez. * left lower extremity cellulitis with abscess status post debridement -wound VAC in place * MSSA bacteremia -PICC in place -on cefazolin 2 g IV q.12 hours * acute renal insufficiency -improving * venous insufficiency/chronic * left leg DVT -INR is therapeutic at 3 -low dose Coumadin today, patient had epistaxis this morning * coronary artery disease with history of stents -on beta-venancio * hyperglycemia/newly diagnosed DM2 -dietary to see -ADA diet -glucoses stable * deconditioning * moderate pulmonary hypertension -recommending outpatient sleep study *Morbid Obesity -BMI is 55 *Plan:hopefully dc in the a.m. w home care, will get continuous infusion of the Cefazolin, Subjective: brandon has no complaints, concerned he has a bloody nose. Objective: Vital Signs Temp Pulse Resp BP Pulse Ox 36.6 C 72 16 139/79 H 96 04/29/18 07:33 04/29/18 07:33 04/29/18 07:33 04/29/18 07:33 04/29/18 07:33 Microbiology 04/23/18 13:00 Gram Stain - Final Leg - Tissue 04/23/18 13:00 Gram Stain - Final Leg - Eswab Laboratory Results 04/29/18 04:30 04/29/18 04:30 04/28/18 04/29/18 04/30/18 05:59 05:59 05:59 Intake Total 500 340 Output Total 400 Balance 500 -60 PT 31.1 SEC (12.0-15.0) H 04/29/18 04:30 INR 3.01 (0.83-1.16) H 04/29/18 04:30 - Physical Exam Constitutional: chronically ill appearing, obese Eyes: PERRL Ears, Nose, Mouth, Throat: hearing normal Cardiovascular: regular rate and rhythym (distant heart sounds) Respiratory: no respiratory distress, reduced air movement Skin: other (chronic venous insufficiency, lower ext edema, wound vac in place) Musculoskeletal: generalized weakness Neurologic: AAOx3 Psychiatric: interacting appropriately ICD10 Worksheet Patient Problems: Problems Problem Status Onset Acute renal failure (ARF) Acute Left leg cellulitis Acute
[2018-04-29] MEDS: SENNOSIDES/DOCUSATE SODIUM TAB PO SCH ×2 (09:09→20:35)
--- NOTE | 2018-04-29 09:09 | PCMIDPN ---
Assessment/Plan: 1. MSSA Left lower extremity cellulitis with concomitant bacteremia: Bacteremia has cleared, and the patient cellulitis looks markedly better. Appreciate wound care assistance. Patient can likely be discharged tomorrow on continuous infusion Ancef now that his creatinine has improved. Discharge orders have been placed, and the patient has an appointment with Dr. Storey ThursdayMay 04 at 11:30 a.m. In the morning. Of note, echocardiogram did not reveal any evidence of vegetations. Stop date for antibiotics May 23. He will complete 4 weeks of therapy. Over 25 mins spent with this pt. Subjective: Had a bloody nose this morning. Complaining of diarrhea, but has only gone twice yesterday and once this morning. No abdominal pain. Wound VAC to be changed tomorrow. Objective: Ancef 2 g IV q.8 hours day 5 No fevers Vital Signs Temp Pulse Resp BP Pulse Ox 36.6 C 72 16 139/79 H 96 04/29/18 07:33 04/29/18 07:33 04/29/18 07:33 04/29/18 07:33 04/29/18 07:33 Microbiology 04/23/18 13:00 Gram Stain - Final Leg - Tissue 04/23/18 13:00 Gram Stain - Final Leg - Eswab Laboratory Results 04/29/18 04:30 04/29/18 04:30 04/28/18 04/29/18 04/30/18 05:59 05:59 05:59 Intake Total 500 340 Output Total 400 Balance 500 -60 ESR > 130 MM/HR (0-20) H 04/23/18 09:50 C-Reactive Protein 510.9 mg/L (<10.0) H 04/23/18 09:50 Blood cultures have cleared previous cultures with MSSA, left lower extremity wound with MSSA - Physical Exam General Appearance: obese EENT: pharynx normal, No thrush Respiratory: lungs clear Cardiac/Chest: regular rate, rhythm, other (Distant heart sounds) Extremities: other (Left lower extremity with wound VAC in place. Cellulitis is markedly better, with brawny discoloration. Swelling is down, no warmth. No tenderness.) Abdomen: non-tender Skin: No rash ICD10 Worksheet Patient Problems: Problems Problem Status Onset Acute renal failure (ARF) Acute Left leg cellulitis Acute
[2018-04-29] MEDS: ceFAZolin 2 GM/DEXTROSE 100 ML IV SCH ×2 (10:06→15:41)
--- NOTE | 2018-04-29 10:41 | SOAPPROG ---
SOAP Progress Note Assessment/Plan: Assessment: RADHA, not oliguric, creat is continuing to improve Leg abscess doing better, up to chair, walks in halls, ID note reviewed anemia, stable acidosis resolved hypernatremia (mild) needs to drink more free water, a little better today Plan: No HD needs continue to follow estrella salmeron and renal function continue antibiotics encouraged nutrition encouraged up as able no need for bicarb supps at this point looks like he will be going home tomorrow with ABX at home will likely not need renal follow up 04/26/18 12:51 04/28/18 10:34 04/29/18 10:38 Subjective: at bedside pt up to chair spirits good, slept OK no cp sob nausea or vomiting anxious to get back home motivated to do the right thing regarding his overall health Objective: Vital Signs Temp Pulse Resp BP Pulse Ox 36.6 C 72 16 139/79 H 96 04/29/18 07:33 04/29/18 07:33 04/29/18 07:33 04/29/18 07:33 04/29/18 07:33 Microbiology 04/23/18 13:00 Gram Stain - Final Leg - Tissue 04/23/18 13:00 Gram Stain - Final Leg - Eswab Laboratory Results 04/29/18 04:30 04/29/18 04:30 04/28/18 04/29/18 04/30/18 05:59 05:59 05:59 Intake Total 500 340 Output Total 400 Balance 500 -60 PT 31.1 SEC (12.0-15.0) H 04/29/18 04:30 INR 3.01 (0.83-1.16) H 04/29/18 04:30 Physical Exam - Physical Exam General Appearance: alert, obese Neck: normal inspection Respiratory: No rhonchi, No wheezing, No pleural rub Cardiac/Chest: regular rate, rhythm, edema, No friction rub Abdomen: normal bowel sounds, non-tender, soft Skin: other (venous stasis, ulceration) Extremities: pedal edema Neuro/Psych: alert, normal mood/affect, oriented x 3 ICD10 Worksheet Patient Problems: Problems Problem Status Onset Acute renal failure (ARF) Acute Left leg cellulitis Acute
--- NOTE | 2018-04-29 11:10 | ASMTCMCOM ---
CM Note CM Note Notes: Spoke w/pt and , Maxine. Gave private care resources if they feel they need extra help. Abx has been changed to continous. Expecting pt to dc this Thursday, CM spoke w/[facility] RN, they will see pt Thursday evening. Carolina from [facility] also notified and will come to visit with pt and . DC Plan: [facility]/ Wound vac Date Signed: 04/29/2018 11:09 AM Electronically Signed By:Jennifer Bravo RN
[2018-04-29] MEDS ORDERED: WARFARIN SODIUM 1 MG TAB PO ONE (16:00)
[2018-04-29] MEDS ORDERED: WARFARIN SODIUM 5 MG TAB PO ONE (16:00)
--- NOTE | 2018-04-29 16:37 | ASMTCMCOM ---
CM Note CM Note Notes: Wound vac delivered to pt's room, paperwork signed and faxed back to [employer]. CM called [employer] 1 [phone] number to expidite extra canisters delivery, person who took call did not think canisters could be delivered on Thursday, they would have to be delivered Thursday. CM called [employer] rep Prabhakar, pt's may not be home because she will need to be at hospital to help patient. Prabhakar will look into matter. Reference # [id number] Date Signed: 04/29/2018 04:35 PM Electronically Signed By:Jennifer Bravo RN
--- NOTE | 2018-04-29 17:09 | SOAPPROG ---
SOAP Progress Note Assessment/Plan: Assessment: 62yo M c LLE abscess s/p debridement and VAC placement - continues to do well. Pain is controlled - VAC change went well yesterday, he had more pain. the flap is adhering to the underlying surface - change tomorrow. home health vs wound care clinic, he is deciding Plan: 04/26/18 16:24 04/26/18 16:25 04/29/18 17:08 Subjective: feels well, ready for home Objective: Vital Signs Temp Pulse Resp BP Pulse Ox 36.6 C 71 18 149/86 H 93 04/29/18 16:00 04/29/18 16:00 04/29/18 16:00 04/29/18 16:00 04/29/18 16:00 Microbiology 04/23/18 13:00 Gram Stain - Final Leg - Tissue 04/23/18 13:00 Gram Stain - Final Leg - Eswab Laboratory Results 04/29/18 04:30 04/29/18 04:30 04/28/18 04/29/18 04/30/18 05:59 05:59 05:59 Intake Total 500 340 Output Total 400 Balance 500 -60 PT 31.1 SEC (12.0-15.0) H 04/29/18 04:30 INR 3.01 (0.83-1.16) H 04/29/18 04:30 ICD10 Worksheet Patient Problems: Problems Problem Status Onset Acute renal failure (ARF) Acute Left leg cellulitis Acute
[2018-04-29] MEDS: ATORVASTATIN CALCIUM 40 MG TAB PO SCH (17:35)
[2018-04-30] MEDS: ceFAZolin 2 GM/DEXTROSE 100 ML IV SCH ×6 (00:39→22:58)
[2018-04-30 05:22] LABS: INR 2.75 (0.83-1.16)
[2018-04-30] MEDS: MULTIVITAMINS 1 EACH TAB PO SCH (08:48)
[2018-04-30] MEDS: ASCORBIC ACID 500 MG TAB PO SCH (08:49)
[2018-04-30] MEDS: CETIRIZINE 10 MG TAB PO SCH (08:49)
[2018-04-30] MEDS: METOPROLOL SUCCINATE XR 50 MG TAB PO SCH (08:49)
[2018-04-30] MEDS: GLUCOSAMINE/CHONDROITIN CAP PO SCH ×2 (08:49→20:41)
[2018-04-30] MEDS: SENNOSIDES/DOCUSATE SODIUM TAB PO SCH ×2 (09:52→19:50)
--- NOTE | 2018-04-30 11:19 | HOSPPROG ---
Hospitalist Progress Note Assessment/Plan: 62-year-old male presenting with left lower extremity abscess and cellulitis complicated by acute renal failure, acute lactic acidosis. Met with the patient with Dr Martínez. * left lower extremity cellulitis with abscess status post debridement -wound VAC in place * MSSA bacteremia -PICC in place -on cefazolin 2 g IV q.12 hours -on discharge will be on continuous infusion * acute renal insufficiency -improving * venous insufficiency/chronic * left leg DVT -INR is therapeutic -have spoken with Dr. Johann Rios office. His nurse Claudia is aware that they will need to monitor his INR in the outpatient setting * coronary artery disease with history of stents -on beta-venancio * hyperglycemia/newly diagnosed DM2 -dietary to see -ADA diet -glucoses stable * deconditioning * moderate pulmonary hypertension -recommending outpatient sleep study *Morbid Obesity -BMI is 55 *Plan: Discharge today after wound care sees the patient and the wound VAC is changed. Awaiting pending chemistry panel Subjective: Wilbert is feeling well, no complaints. Objective: Vital Signs Temp Pulse Resp BP Pulse Ox 36.7 C 71 18 146/84 H 91 L 04/30/18 08:00 04/30/18 08:00 04/30/18 08:00 04/30/18 08:00 04/30/18 08:00 Microbiology 04/23/18 13:00 Gram Stain - Final Leg - Tissue 04/23/18 13:00 Gram Stain - Final Leg - Eswab Laboratory Results 04/29/18 04:30 04/29/18 04/30/18 05/01/18 05:59 05:59 05:59 Intake Total 340 2800 Output Total 400 Balance -60 2800 PT 29.0 SEC (12.0-15.0) H 04/30/18 05:00 INR 2.75 (0.83-1.16) H 04/30/18 05:00 - Physical Exam Constitutional: not in pain, obese Eyes: PERRL Ears, Nose, Mouth, Throat: hearing normal Respiratory: no respiratory distress Skin: warm, other (wound vac) Musculoskeletal: generalized weakness Neurologic: AAOx3 Psychiatric: interacting appropriately ICD10 Worksheet Patient Problems: Problems Problem Status Onset Acute renal failure (ARF) Acute Left leg cellulitis Acute
--- NOTE | 2018-04-30 11:32 | PDIAF ---
- Diagnosis Diagnosis: Left lower extremity cellulitis with bacteremia, dvt Code Status: Full Code - Medication Management Discharge Medications: Medications to Continue on Transfer Ascorbic Acid [Vitamin C 500 mg (*)] 500 mg PO DAILY 04/23/18 [Last Taken ] Atorvastatin Calcium [Lipitor 40 mg (*)] 80 mg PO DAILY18 04/23/18 [Last Taken 04/22/18] Cetirizine [ZyrTEC 10 mg (*)] 10 mg PO DAILY 04/23/18 [Last Taken 04/23/18] Glucosamine/Chondroitin [Glucosamine/Chondroitin (*)] 1 each PO BID 04/23/18 [ Last Taken 04/23/18] Herbals/Supplements -Info Only 1 ea PO DAILY 04/23/18 [Last Taken Unknown] Metoprolol Succinate Xr [Toprol Xl 50 mg (*)] 50 mg PO DAILY 04/23/18 [Last Taken 04/23/18] Multivitamins [Multivitamin (*)] 1 each PO DAILY 04/23/18 [Last Taken 04/23/18] Hydrocodone/APAP 5/325 [[place] 5/325 (*)] 2 tab PO Q4HRS PRN #20 tab 04/30/18 [ Last Taken Unknown] Polyethylene Glycol 3350 [Miralax 17 gm (*)] 17 gm PO DAILY PRN pkt 04/30/18 [ Last Taken Unknown] Sennosides/Docusate Sodium [Senokot-S] 1 - 2 tab PO BID tab 04/30/18 [Last Taken Unknown] Warfarin Sodium [Coumadin 5MG (*)] 5 mg PO DAILY16 #30 tab 04/30/18 [Last Taken Unknown] Penitentiary Antibiotics: Ancef 6 mg/24 hr Penitentiary Antibiotic Stop Date: 05/23/18 Additional Medication Instructions: patient newly on coumadin, needs dose adjusted by his PCP , Dr Rios, the office is aware. Discharge Medications: Refer to the Discharge Home Medication list for PRN reason. PICC Care - Routine: Yes - Orders Services needed: Home Care, Registered Nurse, Physical Therapy, Occupational Therapy Home Care Face to Face: I certify that this patient was under my care and that I had the required [id number] encounter meeting the encounter requirements on the discharge day. My findings support the fact that the patient is homebound as defined in Home Care Face to Face Continued: [facility] Chapter 7 Medicare Benefits Manual 30.1.1 , The condition of the patient is such that there exists a normal inability to leave home and consequently, leaving home would require a considerable and taxing effort. Diet Recommendation: ADA 2000 consistent carb Diet Texture: Regular Texture Diet Additional Instructions: Wound Care Wound Vac Wound vac set to -125mmHG continuous. Thin piece of large white foam in 2 oclock tunnel; tunnel extends to 11cm as of 04/28/18. Large black foam used for the remainder of the vac dressing, with 4 small pieces cut to fit the tunnel at 11 oclock (6cm length extension as of 04/28), and area of undermining at 12 oclock (4cm length extension). Wound vac canisters will require frequent changes , as inpatient wound vac output approximately 1000mL/day. It is necessary to have extra wound vac canisters on hand, since the capacity is much smaller ( 200mL). Please follow up with Dr. Mckeon within a week of April 30. Please call his office to schedule an appointment. You may reach the [facility] at [phone] for an appointment and continued management of your wounds. Please call them [facility] to schedule your appointment as they fill up quickly. If before that time you have any issues please follow up with Dr. Mckeon. follow up with Dr Gan for f/u care in regards to your kidney function/ call his office Recommending patient get an outpatient sleep study - Labs/Radiology CBC w/diff Date: 05/03/18 (Fax to Dr. Storey [phone]) CMP Date: 05/03/18 (Fax to Dr. Storey [phone]) PT/INR Date: 05/03/18 (q 3 days, call Dr Johann Rios to verify dosing) Call or Fax Lab and Imaging Results to: Needs weekly CBC and CMP fax to the same number - Follow Up Care Current Providers and Referrals: Paul Storey MD [Medical Doctor] - (Patient has an appointment with Dr. Storey at the [facility] ThursdayMay 04 at 11:30 a.m. In the morning) Johann Rios MD [Primary Care Provider] - As per Instructions Wilbert Gan MD [Medical Doctor] -
--- NOTE | 2018-04-30 11:37 | PDIAF ---
- Diagnosis Diagnosis: Left lower extremity cellulitis with bacteremia, dvt Code Status: Full Code - Medication Management Discharge Medications: Medications to Continue on Transfer Ascorbic Acid [Vitamin C 500 mg (*)] 500 mg PO DAILY 04/23/18 [Last Taken ] Atorvastatin Calcium [Lipitor 40 mg (*)] 80 mg PO DAILY18 04/23/18 [Last Taken 04/22/18] Cetirizine [ZyrTEC 10 mg (*)] 10 mg PO DAILY 04/23/18 [Last Taken 04/23/18] Glucosamine/Chondroitin [Glucosamine/Chondroitin (*)] 1 each PO BID 04/23/18 [ Last Taken 04/23/18] Herbals/Supplements -Info Only 1 ea PO DAILY 04/23/18 [Last Taken Unknown] Metoprolol Succinate Xr [Toprol Xl 50 mg (*)] 50 mg PO DAILY 04/23/18 [Last Taken 04/23/18] Multivitamins [Multivitamin (*)] 1 each PO DAILY 04/23/18 [Last Taken 04/23/18] Hydrocodone/APAP 5/325 [Waite 5/325 (*)] 2 tab PO Q4HRS PRN #20 tab 04/30/18 [ Last Taken Unknown] Polyethylene Glycol 3350 [Miralax 17 gm (*)] 17 gm PO DAILY PRN pkt 04/30/18 [ Last Taken Unknown] Sennosides/Docusate Sodium [Senokot-S] 1 - 2 tab PO BID tab 04/30/18 [Last Taken Unknown] Warfarin Sodium [Coumadin 5MG (*)] 5 mg PO DAILY16 #30 tab 04/30/18 [Last Taken Unknown] Prison Antibiotics: Ancef 6 mg/24 hr Prison Antibiotic Stop Date: 05/23/18 Additional Medication Instructions: patient newly on coumadin, needs dose adjusted by his PCP , Dr Rios, the office is aware. Discharge Medications: Refer to the Discharge Home Medication list for PRN reason. PICC Care - Routine: Yes - Orders Services needed: Home Care, Registered Nurse, Physical Therapy, Occupational Therapy Home Care Face to Face: I certify that this patient was under my care and that I had the required [id number] encounter meeting the encounter requirements on the discharge day. My findings support the fact that the patient is homebound as defined in Home Care Face to Face Continued: [facility] Chapter 7 Medicare Benefits Manual 30.1.1 , The condition of the patient is such that there exists a normal inability to leave home and consequently, leaving home would require a considerable and taxing effort. Diet Recommendation: ADA 2000 consistent carb Diet Texture: Regular Texture Diet Additional Instructions: Wound Care Wound Vac Wound vac set to -125mmHG continuous. Thin piece of large white foam in 2 oclock tunnel; tunnel extends to 11cm as of 04/28/18. Large black foam used for the remainder of the vac dressing, with 4 small pieces cut to fit the tunnel at 11 oclock (6cm length extension as of 04/28), and area of undermining at 12 oclock (4cm length extension). Wound vac canisters will require frequent changes , as inpatient wound vac output approximately 1000mL/day. It is necessary to have extra wound vac canisters on hand, since the capacity is much smaller ( 200mL). Please follow up with Dr. Mckeon within a week of April 30. Please call his office to schedule an appointment. You may reach the [facility] at [phone] for an appointment and continued management of your wounds. Please call them [facility] to schedule your appointment as they fill up quickly. If before that time you have any issues please follow up with Dr. Mckeon. follow up with Dr Gan for f/u care in regards to your kidney function/ call his office Recommending patient get an outpatient sleep study - Labs/Radiology CBC w/diff Date: 05/03/18 (Fax to Dr. Storey [phone]) CMP Date: 05/03/18 (Fax to Dr. Storey [phone]) PT/INR Date: 05/03/18 (q 3 days, call Dr Johann Rios to verify dosing) Call or Fax Lab and Imaging Results to: Needs weekly CBC and CMP fax to the same number - Follow Up Care Current Providers and Referrals: Wilbert Gan MD [Medical Doctor] - Paul Storey MD [Medical Doctor] - (Patient has an appointment with Dr. Storey at the [facility] ThursdayMay 04 at 11:30 a.m. In the morning) Johann Rios MD [Primary Care Provider] - As per Instructions
--- NOTE | 2018-04-30 11:49 | SOAPPROG ---
SOAP Progress Note Assessment/Plan: Assessment/Plan: RADHA: improving, Cr coming down to 1.4 today, lytes ok, good UOP. - No need for HD. - Would recommend repeat labs next week and f/u with PCP. - Encouraged fluid intake. Hypernatremia: Na down to 145, encourage fluid intake and f/u with PCP. Subjective: No acute events overnight. Pt is being discharged today, has no complaints. Objective: Vital Signs Temp Pulse Resp BP Pulse Ox 36.7 C 71 18 146/84 H 91 L 04/30/18 08:00 04/30/18 08:00 04/30/18 08:00 04/30/18 08:00 04/30/18 08:00 Microbiology 04/23/18 13:00 Gram Stain - Final Leg - Tissue 04/23/18 13:00 Gram Stain - Final Leg - Eswab Laboratory Results 04/29/18 04:30 04/29/18 04/30/18 05/01/18 05:59 05:59 05:59 Intake Total 340 2800 Output Total 400 Balance -60 2800 PT 29.0 SEC (12.0-15.0) H 04/30/18 05:00 INR 2.75 (0.83-1.16) H 04/30/18 05:00 General: alert and oriented, no acute distress Eyes: EOMI, PERRL OP: Clear CV: RRR Resp: nonlabored respirations Abd: Soft, NT/ND Ext: +1 edema BLE Neuro: CN II-XII Grossly intact, no asterixis Psych: cooperative, appropriate mood and affect ICD10 Worksheet Patient Problems: Problems Problem Status Onset Acute renal failure (ARF) Acute Left leg cellulitis Acute
--- NOTE | 2018-04-30 12:43 | ASMTLACE ---
LACE Length of stay for Answers: 4-6 days current admission Acuity / Level of Answers: Yes Care: Did the patient have an inpatient admission? Comorbidities - select Answers: Previous myocardial all that apply infarction Other Notes: HTN # of Emergency department Answers: 1-2 visits in the last 6 months Score: 10 Date Signed: 04/30/2018 12:43 PM Electronically Signed By:Jennifer Bravo RN
--- NOTE | 2018-04-30 13:10 | GDS ---
[f rep st] DISCHARGE SUMMARY DISCHARGE DIAGNOSES: 1. Left lower extremity cellulitis with abscess, status post debridement. 2. Methicillin-susceptible Staphylococcus aureus bacteremia. 3. Acute renal insufficiency. 4. Chronic venous insufficiency. 5. Left leg deep vein thrombosis. 6. Coronary artery disease with a history of stents. 7. Newly diagnosed diabetes. 8. Deconditioning. 9. Moderate pulmonary hypertension. 10. Morbid obesity. CONSULTATIONS: 1. Dr. Nithin Mckeon. 2. Dr. Paul Storey. 3. Dr. Gan. 4. Dr. Perez Dorantes. HISTORY OF PRESENT ILLNESS: Briefly, the patient is a 62-year-old morbidly obese male who presented to the emergency room with acute left lower extremity pain that had been coming on for several days prior to his admission. He has had increased lower extremity edema, as well as purulence and blistering. He was seen in the ER, and there was concern for necrotizing fasciitis, so he was taken to the operating room for debridement. In the OR, he was found to have more of an abscess and no evidence of necrotizing fasciitis. He was brought to the ICU for monitoring. He was seen and evaluated by Infectious Disease and treated with IV antibiotics. In addition, he had some acute kidney injury and was seen by Nephrology. This improved over his stay. He had an ultrasound performed of his left lower extremity that showed a deep vein thrombosis. He is being treated with oral anticoagulation. The plan is for him to be discharged home with [facility]. He will have wound VAC care, as well as continuous IV antibiotics. HOSPITAL COURSE: 1. Left lower extremity cellulitis with abscess. This is status post debridement. He has a wound VAC in place. 2. MSSA bacteremia. He has a PICC in place. He will be treated with IV Cefazolin. 3. Acute renal insufficiency. Creatinine is much improved. Creatinine is 1.4. 4. Chronic venous insufficiency. 5. Left leg DVT. INR is therapeutic. I spoke with his primary care provider' s office. I spoke with Claudia, who works with Dr. Johann Rios. They will monitor his INR and his Coumadin dosing. INR will be checked by the home care nurse and called to Dr. Rios. 6. Coronary artery disease with history of stents, on beta-venancio. 7. Newly diagnosed diabetes type 2. He has an elevated hemoglobin A1c. His glucoses are overall stable. At this time, will not place him on metformin due to his kidney function. This can be readdressed by his primary care provider. Dietary saw him and taught him how to do carbohydrate counting. 8. Deconditioning. Will have home care PT and OT. 9. Moderate pulmonary hypertension, to get outpatient sleep study. 10. Morbid obesity. He knows this is affecting his care. He has been given resources for followup. DISCHARGE CONDITION: Stable. Blood pressure is 146/84. Heart rate is 71, respiratory rate of 18. O2 saturation on room air is 91%. Temperature is 36.7 Celsius. DISCHARGE MEDICATIONS: Please see the EMR. DISCHARGE INSTRUCTIONS: 1. Discharge instructions have been written out in detail for the patient and on the interagency care form. He will get wound VAC care. 2. Follow up with Dr. Mckeon within a week of Thursday to call his office for appointment. 3. To follow up the with the [facility]. 4. To follow up with Dr. Gan if he has any issues with his kidney function. 5. Recommending he get an outpatient sleep study. Greater than 30 minutes discharging and coordinating the patient's care. /[id number]/MODL MTDD
--- NOTE | 2018-04-30 13:41 | WOCRNPDOC ---
ORIANACRN Advanced Assessment Note - Skin Integrity Problem, Advanced Assess Left Leg Dressing Type: Black Vac Foam (x4), White Vac Foam (x1), Wound Vac Dressing Description: Intact Closure Description: Not Approximated Exudate Amount: Excessive Exudate Characteristic(s): Bloody (silver nitrate applied by Linda) Integumentary Issue Intervention: Dressing Changed Kristyn Wound Tissue: Swollen, Intact, Painful/Tender Kristyn Wound Swelling: Mild Wound Bed Color: Red Wound Bed Constitution: Granulation Tissue (85%), Subcutaneous Fat (15%) Wound Edges: Attached (distal wound), Not Attached (proximal wound), Irregular Site Measurement - Head-to-Toe Length X Width X Depth (cm): 7.6x14x2. 11 o' clock: 3.7. 12 o'clock: 1.9. 2 o'clock: 9 Skin Integrity Problem Comment: Patient medicated by BONNIE Patel prior to procedure. Wound bed cleaned with NS and gauze. Dr. Mckeon at bedside to visualize and apply silver nitrate to one small bleeder on the medial margin of wound. White foam placed in tunnel at 2 o'clock - intentinally about 2 cm smaller than tunnel length to allow wound to close. One small tapered piece black simplace foam cut to fit at 11 o'clock and a separate piece at 12 o' clock. Remaining wound bed filled with black simplace foam and draped. Suction applied at -125mmHg via patient's home vac with good seal achieved. Patient tolerated the procedure well. Patient and educated about the home vac, patching a leak, changing a cannister and reminded to leave vac plugged in as much as possible. All questions answered. Patient has follow-up appts at the [facility] for Mon and Wed.
--- NOTE | 2018-04-30 13:42 | SOAPPROG ---
SOAP Progress Note Assessment/Plan: Assessment: 62yo M c LLE abscess s/p debridement and VAC placement - pain better today - PICC in place for continues IV abx - was present for VAC change, wound bed has great granulation tissue, still tracks somewhat superiorly but this is improving each change. - home today. Will go to wound clinic for changes MW, will see me Thursday will change VAC in clinic that day. Plan: 04/26/18 16:24 04/26/18 16:25 04/29/18 17:08 04/30/18 13:41 Subjective: feels well, ready for home Objective: Vital Signs Temp Pulse Resp BP Pulse Ox 36.7 C 71 18 146/84 H 91 L 04/30/18 08:00 04/30/18 08:00 04/30/18 08:00 04/30/18 08:00 04/30/18 08:00 Microbiology 04/23/18 13:00 Gram Stain - Final Leg - Eswab Anaerobic Culture - Final Staphylococcus Aureus 04/23/18 13:00 Gram Stain - Final Leg - Tissue Anaerobic Culture - Final Staphylococcus Aureus Laboratory Results 04/29/18 04:30 04/30/18 10:10 04/29/18 04/30/18 05/01/18 05:59 05:59 05:59 Intake Total 340 2800 Output Total 400 Balance -60 2800 PT 29.0 SEC (12.0-15.0) H 04/30/18 05:00 INR 2.75 (0.83-1.16) H 04/30/18 05:00 ICD10 Worksheet Patient Problems: Problems Problem Status Onset Acute renal failure (ARF) Acute Left leg cellulitis Acute
[2018-04-30] MEDS ORDERED: WARFARIN SODIUM 5 MG TAB PO ONE (16:30)
--- NOTE | 2018-04-30 17:50 | ASMTCMCOM ---
CM Note CM Note Notes: CM was notified by RN that home wound vac now is not working. It had been suctioning fine until recently. CM called Prabhakar at [facility] to let him know and advised him that I would be taking another wound vac #[id number]. Prabhakar swapped out vac and faxed over new paperwork for pt to sign. RN notified CM that 2nd vac also not working. MERY called Prabhakar back and was given the phone numbers of the district clinical specialist Jannette ([phone]) who can trouble shoot with wound RN. RN spoke with specialist and tried to fix wound vac but was unable to get vac to work. It was decided that pt would not discharge and that Jannette from [facility] will come Thursday morning. She has arranged for two new wound vacs to be delivered to hospital at 10:30 am, RN/CM to call Aneudyshakira when they arrive. CM called Carolina at [facility], medications have been delivered to pt's home, will put them in refrigerator when she gets home. I also notified Marce RN at [facility] that pt not discharging tonight. Floor RN notified . CM will follow up in am. Important phone numbers: Jannette District Clinical Specialist [phone] Maria Victoria Mother Tester [phone] Amna [facility] rep [phone] Date Signed: 04/30/2018 05:50 PM Electronically Signed By:Jennifer Bravo RN
[2018-04-30] MEDS: HYDROCODONE/APAP 5/325 TAB PO PRN (20:41)
[2018-04-30] MEDS: ATORVASTATIN CALCIUM 40 MG TAB PO SCH (20:41)
[2018-05-01 04:58] LABS: INR 2.87 (0.83-1.16)
[2018-05-01] MEDS: METOPROLOL SUCCINATE XR 50 MG TAB PO SCH (08:17)
[2018-05-01] MEDS: CETIRIZINE 10 MG TAB PO SCH (08:18)
[2018-05-01] MEDS: GLUCOSAMINE/CHONDROITIN CAP PO SCH (08:18)
[2018-05-01] MEDS: MULTIVITAMINS 1 EACH TAB PO SCH (08:18)
[2018-05-01] MEDS: ASCORBIC ACID 500 MG TAB PO SCH (08:18)
[2018-05-01] MEDS: ceFAZolin 2 GM/DEXTROSE 100 ML IV SCH ×2 (08:19→14:57)
[2018-05-01] MEDS: SENNOSIDES/DOCUSATE SODIUM TAB PO SCH (11:21)
[2018-05-01] MEDS: HYDROCODONE/APAP 5/325 TAB PO PRN (13:09)
[2018-05-01] MEDS ORDERED: WARFARIN SODIUM 2 MG TAB PO ONE (14:15)
--- NOTE | 2018-05-01 16:01 | ASMTCMCOM ---
CM Note CM Note Notes: Wound vacs delivered, Carolina from [facility] here to trouble shoot. Wound vac now working and pt should be able to dc. Marce at [facility] and Emily at [facility] notified. RN notified CM that wound vac working but now won't stop beeping. Jannette at [facility] notified and is coming back. Date Signed: 05/01/2018 03:41 PM Electronically Signed By:Jennifer Bravo RN
[2018-05-01 16:17] VITALS: BP 162/92
--- NOTE | 2018-05-01 17:37 | ASMTCMCOM ---
CM Note CM Note Notes: Jannette from [facility] could not get wound vac to stop the beeping. She called her superior and got the OK to take hospital [facility] wound vac. She will pick it up from pt's home when he is done, she also took the remaining home vac from the Case Management office, we will receive a new shipment on Thursday. Email sent to hardwood floor installer Amna for notification. Jannette will speak with [employer] on Thursday. MERY called Jimena SHARLA RN and let her know pt will be home around 6:30. Date Signed: 05/01/2018 05:25 PM Electronically Signed By:Jennifer Bravo RN
--- NOTE | 2018-05-01 18:05 | ASDISCHSUM ---
Discharge Information Plan Status:IV ABX/Infusion Medically Cleared to Leave: Discharge Date:05/01/2018 05:29 PM D/C Disposition:Home Health Service ADT D/C Disposition:Home Health Service Projected Discharge Date:04/30/2018 11:00 AM Transportation at D/C:Family Discharge Delay Reason: Follow-Up Date:04/30/2018 11:00 AM Discharge Slot: Final Diagnosis: Placement Information Referral Type:[facility] Referral Referral ID:[id number] Provider Name:[email or web address] Address 1:[address] [facility] Address 2: City:[place] Selection Factors: State:[place] Referral Type:Home Infusion Referral ID:[id number] Provider Name:[facility] [place] [facility] Address 1:[address] Address 2: City:[place] Selection Factors: State:[place] Referral Type:*Home Health Care Services Referral ID:[id number] Provider Name:[facility] Address 1:[address] Address 2: City:[place] Selection Factors: State:[place] Patient Contact Information Contact Name:CHANDA Relationship: Address:[address] Work Phone: [facility]:[place] Alternate Phone: State/Zip Code:[place] [address] Email: Financial Information Financial Class:HMO and PPO Plans Primary Plan Desc:[employer] PPO Primary Plan Number:[id number] Secondary Plan Desc: Secondary Plan Number: Assessment Information LACE LACE Length of stay for Answers: 4-6 days current admission Acuity / Level of Answers: Yes Care: Did the patient have an inpatient admission? Comorbidities - select Answers: Previous myocardial all that apply infarction Other Notes: HTN # of Emergency department Answers: 1-2 visits in the last 6 months Score: 10 Date Signed: 04/30/2018 12:43 PM Electronically Signed By:Jennifer Bravo RN [facility] Progress Note CM Note CM Note Notes: 04/24/2018 Case Management Note Reviewed chart. Pt was admitted for left lower extremity cellulitis. Pt underwent surgical debridement and has been started on multiple antibiotics. Pt is and employed. Pt was living independently prior to admission. Case Management d/c poc: to be determined. Case Management to follow. Date Signed: 04/24/2018 12:28 PM Electronically Signed By:Maggie Watts RN [facility] MERY Progress Note CM Note CM Note Notes: MERY spoke to BONNIE Arvizu regarding d/c POC. Pt is having a wound vac placed today. MERY spoke to Dr. Dean and pt will need 4 weeks of ivabx. Pt will have a PICC line placed at some point. MERY met w/ pt for dispo planning. Pt is agreeable to having referral made to [facility], [facility] and [facility]. CM reached out to Mandy at [facility] to start the application. [facility] is able to accept. MERY to follow. Plan: TR; BONNIE with [facility] Date Signed: 04/26/2018 03:26 PM Electronically Signed By:ENOCH Puentes [facility] CM Progress Note CM Note CM Note Notes: Carolina from [facility] met w/ pt today. Pt is agreeable to using [facility] for ivabx. Nithin Mckeon signed the wound vac prescription. CM [facility] to be [facility] again to get wound measurements to complete wound vac prescription and to fax it to [facility]. CM left the wound vac prescription in pts chart. CM to follow. Plan: [facility]; RN w/ [facility] Date Signed: 04/27/2018 02:31 PM Electronically Signed By:ENOCH Puentes [facility] CM Progress Note CM Note CM Note Notes: Spoke w/ ANIMAL ASSISTANT, pt will dc home with wound vac, [facility] for IV abx, and [facility]. CM spoke w/Prabhakar at [facility] and paperwork sent, per desktop operator, pt will need extra canisters, at least 5 per day. [facility] will fax form to fill out to justify extra canisters. software solutions architect also recommends that pt dc on Thursday and go to the wound care clinic on Thu/Thu of next week. And then follow up with Dr Mckeon on that Monday 05/07. CM in process of scheduling appts. CM discussed this with pt and Maxine, per [facility], RN will come twice/day until pt and feel comfortable with abx administration. Also gave them other homecare resources. DC Plan: [facility](RN)/ [facility] wound vac Date Signed: 04/28/2018 02:35 PM Electronically Signed By:Jennifer Bravo RN [facility] MERY Progress Note CM Note MERY Note Notes: Spoke w/pt and , Maxine. Gave private care resources if they feel they need extra help. Abx has been changed to continous. Expecting pt to dc this Thursday, CM spoke w/[facility] RN, they will see pt Thursday evening. Carolina from [facility] also notified and will come to visit with pt and . DC Plan: [facility]/ Wound vac Date Signed: 04/29/2018 11:09 AM Electronically Signed By:Jennifer Bravo RN [facility] MERY Progress Note MERY Saunders CM Note Notes: Wound vac delivered to pt's room, paperwork signed and faxed back to [facility]. MERY called [facility] 1 [phone] number to expidite extra canisters delivery, person who took call did not think canisters could be delivered on Thursday, they would have to be delivered Thursday. MERY called Germania connor Prabhakar, pt's may not be home because she will need to be at hospital to help patient. Prabhakar will look into matter. Reference # [id number] Date Signed: 04/29/2018 04:35 PM Electronically Signed By:Jennifer Bravo RN Case Management Discharge Plan Note Case Management Discharge Discharge Order Complete? Answers: Yes Patient to Obtain Answers: Other Notes: [facility] Medications Transportation Arranged Answers: Family/Friends Faxed Final Orders Answers: Yes Discharge Comments Notes: D/w ANIMAL ASSISTANT, final orders in chart. Carolina at [facility] and Caty at [facility] notified. Derrek from [facility] delivered extra canisters to pt's room and another shipment will be delivered to pt's home. Pt is aware of all appointments, RN to call report. Date Signed: 04/30/2018 12:38 PM Electronically Signed By:Jennifer Bravo RN [facility] CM Progress Note CM Note CM Note Notes: MERY was notified by RN that home wound vac now is not working. It had been suctioning fine until recently. MERY called Prabhakar at [facility] to let him know and advised him that I would be taking another wound vac #[id number]. Prabhakar swapped out vac and faxed over new paperwork for pt to sign. RN notified MERY that 2nd vac also not working. MERY called Prabhakar back and was given the phone numbers of the district clinical specialist Jannette ([phone]) who can trouble shoot with wound RN. RN spoke with specialist and tried to fix wound vac but was unable to get vac to work. It was decided that pt would not discharge and that Jannette from [facility] will come Thursday morning. She has arranged for two new wound vacs to be delivered to hospital at 10:30 am, RN/CM to call Jannette when they arrive. MERY called Carolina at [facility], medications have been delivered to pt's home, will put them in refrigerator when she gets home. I also notified Marce RN at [facility] that pt not discharging tonight. Floor RN notified . MERY will follow up in am. Important phone numbers: Jannette [facility] Clinical Specialist [phone] Maria Victoria Agricultural Economist [phone] Amna [facility] rep [phone] Date Signed: 04/30/2018 05:50 PM Electronically Signed By:Jennifer Bravo RN [facility] MERY Progress Note CM Nicky CM Note Notes: Wound vacs delivered, Carolina from [facility] here to trouble shoot. Wound vac now working and pt should be able to dc. Marce at [facility] and Emily at [facility] notified. RN notified MERY that wound vac working but now won't stop beeping. Jannette at [facility] notified and is coming back. Date Signed: 05/01/2018 03:41 PM Electronically Signed By:Jennifer Bravo RN [facility] MERY Progress Note CM Note CM Note Notes: Jannette from [facility] could not get wound vac to stop the beeping. She called her superior and got the OK to take [facility] wound vac. She will pick it up from pt's home when he is done, she also took the remaining home vac from the Case Management office, we will receive a new shipment on Thursday. Email sent to floor scraper Amna for notification. Jannette will speak with Territory Service Representative on Thursday. CM called Jimena [facility] RN and let her know pt will be home around 6:30. Date Signed: 05/01/2018 05:25 PM Electronically Signed By:Jennifer Bravo RN Intervention Information
--- NOTE | 2018-05-01 19:36 | GDS ---
[f rep st] DISCHARGE SUMMARY DISCHARGE DIAGNOSES: 1. Left lower extremity cellulitis with abscess status post debridement. 2. Methicillin-sensitive Staphylococcus aureus bacteremia. 3. Acute renal failure, now resolved. 4. Chronic venous insufficiency. 5. Acute left lower deep vein thrombosis at this admission. 6. Coronary artery disease with history of stents. 7. Newly diagnosed diabetes in this admission. 8. Morbid obesity. CONSULTATIONS: 1. Nithin Mckeon MD. 2. Paul Storey MD. 3. Wilbert Gan MD. 4. Perez Dorantes MD. HPI: Please see previously dictated discharge summary from yesterday for complete details. Interim changes include wound VAC failure requiring discharge on inpatient wound VAC. DISCHARGE MEDICATIONS: Please see med reconciliation. There are no changes from yesterday's reconci liation. Patient will have a lower dose of warfarin due to therapeutic INR at 2.8 on day of discharg e. DISCHARGE INSTRUCTIONS: 1. Follow up with wound healing center on Thursday. They will make your next appointment for 2 days f rom that appointment. 2. Follow up with Dr. Mckeon in 1 week's time. 3. Please have your INR checked either Thursday, , or Thursday of next week with your PCP's o ffice. Please note that greater than 30 minutes was spent on discharge and coordination of care. /[id number]/MODL
== END 2018-05-01 17:29 | disposition home health service (06) | DRG 580 ==
LOC: OBSVTOIN 10:43 → F2N 14:40 → F3E 04-25 18:17
PROVIDERS: ADMIT Internal Medicine; ATTEND Internal Medicine
PROC: 0KBR0ZZ Excision of Left Upper Leg Muscle, Open Approach (ICD-10-PCS; principal; 2018-04-23 12:15)
PROC: 02HV33Z Insertion of Infusion Device into Superior Vena Cava, Percutaneous Approach (ICD-10-PCS; 2018-04-28)
DX: L03.116 Cellulitis of left lower limb (principal); R78.81 Bacteremia; N17.9 Acute kidney failure, unspecified; I82.4Z2 Acute embolism and thrombosis of unspecified deep veins of left distal lower extremity; Z68.43 Body mass index [BMI] 50.0-59.9, adult; L02.416 Cutaneous abscess of left lower limb; B95.61 Methicillin susceptible Staphylococcus aureus infection as the cause of diseases classified elsewhere; I87.2 Venous insufficiency (chronic) (peripheral); I25.10 Atherosclerotic heart disease of native coronary artery without angina pectoris; E11.9 Type 2 diabetes mellitus without complications; E66.01 Morbid (severe) obesity due to excess calories; I27.20 Pulmonary hypertension, unspecified; I10 Essential (primary) hypertension; G47.33 Obstructive sleep apnea (adult) (pediatric); Z95.5 Presence of coronary angioplasty implant and graft
CPT/HCPCS: 83605-PO; 85520-90; 96365; 97110-GP; 97116-GP; 97161-GP; 97530-GP; C1751; J0690; J1100; J1170; J1644; J2250; J2540; J2704; J3010; J3370

== ENCOUNTER 2018-06-07 06:47 | Day surgery (SDC) | payer BC, OTHER ==
--- NOTE | 2018-06-06 20:07 | PDGENHP ---
History and Physical - Chief Complaint abscess lower leg - History of Present Illness 62yo M s/p debridement of anter lower leg abscess. Has been treated sufficiently with abx and has had VAC in place. Area has granulated sufficently. Needs STSG History Information - Allergies/Home Medication List Allergies/Adverse Reactions: No Known Allergies Allergy (Unverified 04/23/18 09:12) Home Medications: Ascorbic Acid [Vitamin C 500 mg (*)] 500 mg PO DAILY 04/23/18 [Last Taken ] Atorvastatin Calcium [Lipitor 40 mg (*)] 80 mg PO DAILY18 04/23/18 [Last Taken 04/22/18] Cetirizine [ZyrTEC 10 mg (*)] 10 mg PO DAILY 04/23/18 [Last Taken 04/23/18] Glucosamine/Chondroitin [Glucosamine/Chondroitin (*)] 1 each PO BID 04/23/18 [ Last Taken 04/23/18] Herbals/Supplements -Info Only 1 ea PO DAILY 04/23/18 [Last Taken Unknown] Metoprolol Succinate Xr [Toprol Xl 50 mg (*)] 50 mg PO DAILY 04/23/18 [Last Taken 04/23/18] Multivitamins [Multivitamin (*)] 1 each PO DAILY 04/23/18 [Last Taken 04/23/18] Taltz Autoinjector 06/02/18 [Last Taken Unknown] Xarelto 06/02/18 [Last Taken Unknown] I have personally reviewed and updated: medical history, social history, surgical history Past Medical History: HTN, psoriatic arthritis - Past Medical History coronary artery disease (With cardiac stents in 1998, 3 placed, has had very rare angina over the past 20 years only taking sublingual nitroglycerin approximately 3 times) Additional medical history: Morbid obesity. Osteoarthritis. Suspected underlying obstructive sleep apnea. Psoriasis and psoriatic arthritis for 30 years on chronic immunosuppressant - Surgical History Additional surgical history: no Hx of nec fasc or lower extremity surgeries - Family History Additional family history: No family history of venous thromboembolism or rheumatologic disorders - Social History Smoking Status: Former smoker Additional social history: Recently returned from a road trip on the [facility] Review of Systems Review of Systems: ROS: 10pt was reviewed & negative except for what was stated in HPI & below Physical Exam Physical Exam: Constitutional: no apparent distress, appears nourished, not in pain Eyes: PERRL, anicteric sclera, EOMI Ears, Nose, Mouth, Throat: moist mucous membranes, hearing normal, ears appear normal, no oral mucosal ulcers Cardiovascular: regular rate and rhythym, no murmur, rub, or gallop, No edema Respiratory: no respiratory distress, no rales or rhonchi, clear to auscultation Gastrointestinal: normoactive bowel sounds, soft, non-tender abdomen, no palpable masses Genitourinary: no bladder fullness, no bladder tenderness Skin: warm, normal color, no rashes or abrasions, no fluctuance, no induration, other (open wound on LLE below knee, 100% granulation tissue ), No mottled Musculoskeletal: full muscle strength, no muscle tenderness, normal joint ROM, no joint effusions Psychiatric: interacting appropriately, not anxious, not encephalopathic, thought process linear Lymph, Heme, Immunologic: no cervical LAD, no supraclavicular LAD Assessment & Plan Assessment: 62yo M c LLE open wound Plan: to OR for STSG
--- NOTE | 2018-06-07 07:29 | PDHPUP ---
History & Physical Update H&P update statement: This history and physical update is based on an assessment of the patient which was completed after admission or registration (within 24 hours), but prior to the surgery/procedure. H&P update: H&P reviewed & patient examined, no change in patient's condition since H&P completed
[2018-06-07] MEDS ORDERED: LIDOCAINE 1% 2 ML INJ ID PRN (07:32)
[2018-06-07] MEDS ORDERED: ceFAZolin 3 GM in D5W 100 ML IV ONE (07:32)
[2018-06-07] MEDS ORDERED: LR 1,000 ML IV ONE (07:32)
[2018-06-07] MEDS ORDERED: MINERAL OIL 10 ML VIAL ONE ×2 (07:48→07:49)
[2018-06-07] MEDS ORDERED: THROMBIN (BOVINE) 20,000 UNIT SPRAY TP ONE (07:50)
[2018-06-07] MEDS ORDERED: BUPIVACAINE 0.25% 30 ML SDV ONE (07:50)
--- NOTE | 2018-06-07 08:13 | PDANEPAE ---
ANE History of Present Illness h/o necrotizing fasciitis left leg ANE Past Medical History - Cardiovascular History Hx Hypertension: Yes Hx Arrhythmias: No Hx Chest Pain: No Hx Coronary Artery / Peripheral Vascular Disease: Yes Hx CHF / Valvular Disease: No Hx Palpitations: No Cardiovascular History Comment: [place]/CARDIAC STENTS 1998. DVT FOLLOWING SURGERY - TAKING XARELTO - Pulmonary History Hx COPD: No Hx Asthma/Reactive Airway Disease: Yes Hx Recent Upper Respiratory Infection: No Hx Oxygen in Use at Home: No Hx Sleep Apnea: No Sleep Apnea Screening Result - Last Documented: Positive Pulmonary History Comment: ENVIRONMENTAL TRIGGERS RARE - Neurologic History Hx Cerebrovascular Accident: No Hx Seizures: No Hx Dementia: No - Endocrine History Hx Diabetes: No - Renal History Hx Renal Disorders: No Renal History Comment: ACUTE RENAL FAILURE DURING RECENT HOSPITALIZATION - Liver History Hx Hepatic Disorders: No - Neurological & Psychiatric Hx Hx Neurological and Psychiatric Disorders: No - Cancer History Hx Cancer: No - Congenital Disorder History Hx Congenital Disorders: No - GI History Hx Gastrointestinal Disorders: No - Other Health History Other Health History: PLAQUE PSORIASIS. DVT FOLLOWING LLE DEBRIDEMENT IN APRIL 2018. PSORIATIC ARTHRITIS - Chronic Pain History Chronic Pain: Yes (KNEE PAIN & JOINTS) - Surgical History Prior Surgeries: NECROTIZING FASCIITIS W/STAPH INF DEBRIDEMENT 04/23/2018. PICC LINE PLACEMENT /REMOVAL. WISDOM TEETH. CARDIAC STENTS ANE Review of Systems Review of Systems: - Exercise capacity METS (RN): 4 METS ANE Patient History - Allergies Allergies/Adverse Reactions: No Known Allergies Allergy (Unverified 04/23/18 09:12) - Home Medications Home Medications: Ascorbic Acid [Vitamin C 500 mg (*)] 500 mg PO DAILY 04/23/18 [Last Taken 4 Days Ago ~06/03/18] Atorvastatin Calcium [Lipitor 40 mg (*)] 80 mg PO DAILY18 04/23/18 [Last Taken 1 Day Ago ~06/06/18] Cetirizine [ZyrTEC 10 mg (*)] 10 mg PO DAILY 04/23/18 [Last Taken 4 Days Ago ~] Glucosamine/Chondroitin [Glucosamine/Chondroitin (*)] 1 each PO BID 04/23/18 [ Last Taken 4 Days Ago ~06/03/18] Herbals/Supplements -Info Only 1 ea PO DAILY 04/23/18 [Last Taken 4 Days Ago ~] Metoprolol Succinate Xr [Toprol Xl 50 mg (*)] 50 mg PO DAILY 04/23/18 [Last Taken 06/07/18 06:00] Multivitamins [Multivitamin (*)] 1 each PO DAILY 04/23/18 [Last Taken 4 Days Ago ~06/03/18] Taltz Autoinjector 06/02/18 [Last Taken Unknown] Xarelto 06/02/18 [Last Taken 06/04/18] Lovenox 80 MG (*) 06/07/18 [Last Taken 06/06/18 19:00] - NPO status NPO Since - Liquids (Date): 06/07/18 NPO Since - Liquids (Time): 05:45 NPO Since - Solids (Date): 06/06/18 NPO Since - Solids (Time): 19:30 - Smoking Hx Smoking Status: Former smoker - Family Anes Hx Family Hx Anesthesia Complications: NEG ANE Labs/Vital Signs - Vital Signs Blood Pressure: 143/82 Heart Rate: 81 Respiratory Rate: 18 O2 Sat (%): 94 Height: 177.8 cm Weight: 166.922 kg ANE Physical Exam - Airway Neck exam: FROM Mallampati Score: Class 2 Mouth exam: normal dental/mouth exam - Pulmonary Pulmonary: no respiratory distress - Cardiovascular Cardiovascular: regular rate and rhythym - ASA Status ASA Status: III ANE Anesthesia Plan Anesthesia Plan: general endotracheal anesthesia
[2018-06-07] MEDS ORDERED: fentaNYL 100 MCG/2 ML INJ ONE ×2 (08:26)
[2018-06-07] MEDS ORDERED: PROPOFOL 200 MG/20 ML VIAL ONE ×2 (08:27→08:55)
[2018-06-07] MEDS ORDERED: EPINEPHrine 1 MG/ML INJ ONE (08:32)
[2018-06-07] MEDS ORDERED: ALBUTEROL 3 ML DEYVIAL IH PRN (08:54)
[2018-06-07] MEDS ORDERED: PROMETHAZINE HCL 25 MG/ML INJ IVP PRN (08:54)
[2018-06-07] MEDS ORDERED: oxyCODONE IR 5 MG TAB PO PRN (08:54)
[2018-06-07] MEDS ORDERED: NALOXONE HCL 0.4 MG/ML INJ IVP PRN (08:54)
[2018-06-07] MEDS ORDERED: HYDROmorphONE/DILAUDID 1 MG/ML INJ IVP PRN (08:54)
[2018-06-07] MEDS ORDERED: LABETALOL HCL 5 MG/ML 20 ML MDV IVP PRN (08:54)
[2018-06-07] MEDS ORDERED: ONDANSETRON 4 MG/2 ML VIAL IVP PRN (08:54)
[2018-06-07] MEDS ORDERED: fentaNYL 100 MCG/2 ML INJ IVP PRN (08:54)
[2018-06-07] MEDS ORDERED: LIDOCAINE 2% 5 ML SDV ONE (09:02)
[2018-06-07] MEDS ORDERED: DEXAMETHASONE 4 MG/ML VIAL ONE (09:02)
[2018-06-07] MEDS ORDERED: SUGAMMADEX SODIUM 200 MG/2 ML VIAL IVP ONE (09:02)
[2018-06-07] MEDS ORDERED: ONDANSETRON 4 MG/2 ML VIAL ONE (09:02)
[2018-06-07] MEDS ORDERED: BACITRACIN ZINC 14.2 GM OINTTUBE TP ONE (09:25)
--- NOTE | 2018-06-07 09:38 | POSTOPPROG ---
Post Op Note Date of Operation: 06/07/18 Surgeon: Nithin Mckeon Infertility Medical Assistant: FLAVIO Thakkar Anesthesiologist: Cece Anesthesia: GET(General Endotracheal) Pre-op Diagnosis: LLE abscess Post-op Diagnosis: same Procedure: STSG LLE Findings: L thigh donor site, VAC Inf/Abcess present in the surg proc area at time of surgery?: No EBL: Minimal Drains: Wound Vac
--- NOTE | 2018-06-07 09:42 | POSTANESTH ---
Post Anesthetic Evaluation Cardiovascular Status: Normal, Stable Respiratory Status: Normal, Stable Level of Consciousness/Mental Status: Can Participate in Eval Pain Control: Adequate, Prn Tx Ordered Nausea/Vomiting Control: Adequate, Prn Tx Ordered Complications Possibly Related to Anesthesia: None Noted
[2018-06-07] MEDS ORDERED: oxyCODONE IR 5 MG TAB ONE (10:22)
[2018-06-07 11:36] VITALS: BP 141/77
--- NOTE | 2018-06-07 11:37 | PDHOMEO2F ---
Home Oxygen Face to Face Home Orders: I certify that a physician or a nurse practitioner or physician's family services assistant has had a [id number] encounter with this patient on the date of this order due to the diagnosis listed, which relates to the primary reason the patient requires home oxygen. Alternative treatments have been tried, or considered, and deemed ineffective. It is anticipated that supplemental oxygen will result in improvement with treatment. Home oxygen qualifying diagnosis: Hypoxia SpO2 on room air (%): 80% Frequency of home oxygen needed: continuous Home oxygen liters per minute: 2 Home oxygen delivery device: nasal cannula Concentrator: Yes E-tanks for mobility and back up: Yes If ordering portable O2, is the patient mobile in the home?: Yes I certify that, based on these findings, the home oxygen is medically necessary for this patient for the following length of time. Length of time home oxygen needed: 1 week Home Oxygen Comment: 3 days
--- NOTE | 2018-06-11 09:23 | GOP ---
[f rep st] OPERATIVE REPORT DATE OF OPERATION: 06/07/2018 SURGEON: Nithin Mckeon MD INSTALLMENT AGENT: KURT Figueroa student. ANESTHESIA: General endotracheal. ANESTHESIOLOGIST: Dr. Zhao. PREOPERATIVE DIAGNOSIS: Left lower extremity open wound secondary to abscess and debridement. POSTOPERATIVE DIAGNOSIS: Left lower extremity open wound secondary to abscess and debridement. PROCEDURE PERFORMED: Split-thickness skin graft to the left lower extremity, left thigh donor site. FINDINGS: The wound bed had excellent granulation tissue. One single pass of the dermatome meshed i n a 1.5:1 ratio, covered the area appropriately. SPECIMENS: None. ESTIMATED BLOOD LOSS: 20 cc. DESCRIPTION OF PROCEDURE: The patient was greeted in the preoperative suite. Once again, risks, jacob efits, and alternatives were discussed. Consent was signed. He was then brought back to the operati ve suite, placed on the OR table in supine position. After all anesthesia machines including SCDs we re on and functioning, a [employer] time-out was performed. After successful inductio n of general anesthesia, the patient's left lower extremity was prepped and draped in typical sterile fashion. I commenced the procedure by gently cleaning the wound bed that had good granulation tissu e, but I took this down gently with a 10 blade roughing it up so that it had good adequate bleeding. Once this was done, I turned my attention toward the donor site which was the proximal left thigh. Using mineral oral for lubrication, I set the dermatome to the appropriate depth and successfully too k an area of split-thickness skin. The specimen was then passed off. It was placed through the mesh er immediately in a 1.5:1 ratio and then brought to the site. It was attached to the surrounding ski n using ayo. It was allowed to lay without any tension or defect to cover it. I initially cover ed it with a piece of Xeroform, black wound VAC sponge and then the drape. It was attached to suctio n at 125 mmHg which was well tolerated by the patient without any apparent leaks. The donor site was then made hemostatic with epinephrine-soaked Raytecs. Once hemostatic, I injected lidocaine into th e area. It was then covered with a slathering of bacitracin, Adaptic Touch and a sterile dressing. The patient was then awoken in the operative suite and taken to the PACU in satisfactory condition. DRAINS: Wound VAC. COUNTS: All counts were reported as correct x2. /[id number]/MODL
== END 2018-06-07 13:10 | disposition home or self-care (01) ==
LOC: FSGY 06:47
PROVIDERS: ATTEND Surgery
PROC: 0HRLX74 Replacement of Left Lower Leg Skin with Autologous Tissue Substitute, Partial Thickness, External Approach (ICD-10-PCS; principal; 2018-06-07 08:15)
DX: M72.6 Necrotizing fasciitis (principal); B95.61 Methicillin susceptible Staphylococcus aureus infection as the cause of diseases classified elsewhere; I10 Essential (primary) hypertension; E66.01 Morbid (severe) obesity due to excess calories; I25.10 Atherosclerotic heart disease of native coronary artery without angina pectoris; Z95.5 Presence of coronary angioplasty implant and graft; Z87.891 Personal history of nicotine dependence
CPT/HCPCS: J0171; J0690; J1100; J2405; J2704; J3010